=== PATIENT | female | born 1990 | race Caucasian/White ===

== ENCOUNTER 2017-05-20 10:30 | Emergency (ER) | payer SELFPAY ==
[2017-05-20 10:38] VITALS: O2SAT 98
[2017-05-20 11:03] VITALS: TEMP 98.2
[2017-05-20 11:20] LABS: RBC URINE < 1 /hpf (0-3); URINE BILIRUBIN NEGATIVE (NEGATIVE); URINE BLOOD NEGATIVE (NEGATIVE); URINE COLOR Yellow (YELLOW); URINE GLUCOSE (UA) NORMAL (Normal); URINE KETONE NEGATIVE (NEGATIVE); URINE LEUKOCYTE ESTERASE NEG Leu/uL (Negative); URINE PROTEIN NEGATIVE (NEGATIVE); URINE UROBILINOGEN NORMAL mg/dL (0.2-1.0); WBC URINE < 1 /hpf (0-5)
[2017-05-20 11:52] LABS: BASO % 0.5 % (0.0-2.0); EOS # 0.1 K/uL (0.0-0.7); HEMATOCRIT 39.4 % (34.0-47.0); LYMPH # 1.9 K/uL (1.0-4.3); LYMPH % 34.8 % (20.0-40.0); MEAN CELL VOLUME 87.8 fL (81.0-99.0); MEAN CORPUSCULAR HEMOGLOBIN 29.1 pg (27.0-31.0); MEAN CORPUSCULAR HGB CONC 33.1 g/dL (33.0-37.0); MEAN PLATELET VOLUME 9.2 fL (7.2-11.7); MONO # 0.4 K/uL (0.0-0.8); MONO % 7.1 % (0.0-10.0); NRBC % 0.1 % (0.0-2.0); RED CELL DISTRIBUTION WIDTH 14.4 % (11.5-14.5); WHITE BLOOD COUNT 5.3 K/uL (4.8-10.8)
[2017-05-20 12:01] LABS: CHLORIDE 106 mmol/L (98-107); POTASSIUM 3.7 mmol/L (3.6-5.2); SODIUM 141 mmol/L (132-148)
[2017-05-20 12:03] LABS: BILIRUBIN,TOTAL 0.8 mg/dL (0.2-1.3); CARBON DIOXIDE 20 mmol/L (22-30); GFR AFRICAN-AMERICAN > 60
[2017-05-20 12:04] LABS: ALB/GLOB RATIO 1.3 (1.0-2.1); ALKALINE PHOSPHATASE 76 U/L (38-126); ALT/SGPT 13 U/L (9-52); AST/SGOT 20 U/L (14-36); BLOOD UREA NITROGEN 10 mg/dL (7-17); CALCIUM 9.6 mg/dl (8.6-10.4); GLUCOSE,RANDOM 67 mg/dL (65-105); TOTAL PROTEIN 7.6 g/dL (6.3-8.3)
--- NOTE | 2017-05-20 12:43 | C.PDOC ---
History Of Present Illness 26-year-old female, () presents to the emergency department with complaints of lower abdominal cramping that is associated with vaginal bleeding today. Patient had a home test that was positive. She denies trauma, dysuria, vomiting, diarrhea, or any other associated symptoms. No other complaints at this time. Time Seen by Provider: 05/20/17 10:50 Chief Complaint (Nursing): Female Genitourinary History Per: Patient History/Exam Limitations: no limitations Onset/Duration Of Symptoms: Hrs Current Symptoms Are (Timing): Still Present Severity: Moderate Past Medical History Reviewed: Historical Data, Nursing Documentation, Vital Signs Vital Signs: Last Vital Signs Temp 98.2 F 05/20/17 13:39 Pulse 70 05/20/17 13:39 Resp 18 05/20/17 13:39 BP 105/70 05/20/17 13:39 Pulse Ox 98 05/20/17 18:09 Family History: States: No Known Family Hx - Social History Hx Alcohol Use: No Hx Substance Use: No - Immunization History Hx Tetanus Toxoid Vaccination: No Hx Influenza Vaccination: No Hx Pneumococcal Vaccination: No Review Of Systems Except As Marked, All Systems Reviewed And Found Negative. Constitutional: Negative for: Fever, Chills Cardiovascular: Negative for: Chest Pain, Palpitations Respiratory: Negative for: Shortness of Breath Gastrointestinal: Positive for: Abdominal Pain. Negative for: Nausea, Vomiting Genitourinary: Positive for: Vaginal Bleeding Neurological: Negative for: Weakness, Numbness, Headache, Dizziness Physical Exam - Physical Exam Appears: Non-toxic, No Acute Distress Skin: Warm, Dry, No Rash Head: Atraumatic, Normacephalic Eye(s): bilateral: Normal Inspection, PERRL, EOMI Nose: Normal Oral Mucosa: Moist Lips: Normal Appearing Throat: No Erythema, No Exudate Neck: Normal ROM, Supple Cardiovascular: Rhythm Regular, No Friction Rub, No Murmur Respiratory: Normal Breath Sounds, No Accessory Muscle Use Gastrointestinal/Abdominal: Soft, No Tenderness, No Guarding, No Rebound Back: Normal Inspection, No CVA Tenderness Extremity: Normal ROM, No Swelling Neurological/Psych: Oriented x3, Normal Speech, Normal Motor Gait: Steady ED Course And Treatment - Laboratory Results Result Diagrams: 05/20/17 11:45 05/20/17 11:45 O2 Sat by Pulse Oximetry: 98 (on RA) Pulse Ox Interpretation: Normal - CT Scan/US US TRANSVAG Other Rad Studies (CT/US): Read By Radiologist, Radiology Report Reviewed CT/US Interpretation: Accession No. : [id number]. Patient Name / ID : ASIA Jiménez / [id number]. Exam Date : 05/20/2017 11:54:25 ( Approved ). Study Comment : Sex / Age : F / 26Y. Creator : Bryce Srivastava MD. Dictator : Bryce Srivastava MD. Membership Administrator : Deep Tissue Massage Therapist : Bryce Srivastava MD. Approver2 : Report Date : 05/20/2017 12:56:23. My Comment : . Pelvic ultrasound. History: Vaginal bleeding. Comparison: None available. Technique: Real-time sonography was performed through the pelvis utilizing transabdominal and transvaginal techniques. Findings: test negative. Uterus: 7.0 x 3.9 x 5.4 centimeters. Heterogeneous echotexture. Anteverted. Endometrium measures 9 millimeters, within normal limits. Cervix measures 2.6 centimeters. No free fluid in the pelvic cul-de-sac. Right ovary: 3.4 x 3.0 x 3.3 centimeters. Normal flow. Left ovary: 3.5 x 1.5 x 3.1 centimeters. Normal flow. Impression: Unremarkable sonographic evaluation of the pelvis. Medical Decision Making Medical Decision Making: Differential Diagnosis: spontaneous , UTI, dysmenorrhea, ovarian cyst, fibroids. Plan: * Type and Screen * Beta HCG, CMP * CBC * US OB * Reassess and Disposition The pelvic/transvaginal US was negative and patient was negative for . Most likely dysmenorrhea. On re-exam, the patient reports improvement of symptoms. Abdomen is soft, non-tender and tolerating PO well. Disposition - Disposition Referrals: [facility] at [facility] [Outside] [facility] [Outside] Disposition: HOME/ ROUTINE Disposition Time: 13:24 Condition: GOOD Additional Instructions: Follow up with the medical doctor within 1-2 days. Return if worsened. Prescriptions: Naproxen [Naprosyn] 500 mg PO BID #20 tab Instructions: Dysmenorrhea (ED) Print Language: JAPANESE - Clinical Impression Clinical Impression: Dysmenorrhea - Scribe Statement The provider has reviewed the documentation as recorded by the Scribe (Marcio Weber) All medical record entries made by the Scribe were at my direction and personally dictated by me. I have reviewed the chart and agree that the record accurately reflects my personal performance of the history, physical exam, medical decision making, and the department course for this patient. I have also personally directed, reviewed, and agree with the discharge instructions and disposition.
--- NOTE | 2017-05-20 12:57 | US ---
Pelvic ultrasound History: Vaginal bleeding. Comparison: None available. Technique: Real-time sonography was performed through the pelvis utilizing transabdominal and transvaginal techniques. Findings: test negative. Uterus: 7.0 x 3.9 x 5.4 centimeters. Heterogeneous echotexture. Anteverted. Endometrium measures 9 millimeters, within normal limits. Cervix measures 2.6 centimeters. No free fluid in the pelvic cul-de-sac. Right ovary: 3.4 x 3.0 x 3.3 centimeters. Normal flow. Left ovary: 3.5 x 1.5 x 3.1 centimeters. Normal flow. Impression: Unremarkable sonographic evaluation of the pelvis.
[2017-05-20 13:40] VITALS: BP 105/70; PULSE 70; RESP 18
== END 2017-05-20 13:40 | disposition home or self-care (01) ==
LOC: C.ER 10:30
DX: N94.6 Dysmenorrhea, unspecified (principal)

== ENCOUNTER 2017-06-21 11:12 | Observation (INO) | payer SELFPAY ==
[2017-06-21 11:20] VITALS: TEMP 97.7
[2017-06-21 11:57] LABS: RBC URINE < 1 /hpf (0-3); URINE BILIRUBIN NEGATIVE (NEGATIVE); URINE BLOOD NEGATIVE (NEGATIVE); URINE COLOR Straw (YELLOW); URINE GLUCOSE (UA) NORMAL (Normal); URINE KETONE NEGATIVE (NEGATIVE); URINE LEUKOCYTE ESTERASE NEG Leu/uL (Negative); URINE PROTEIN NEGATIVE (NEGATIVE); URINE UROBILINOGEN NORMAL mg/dL (0.2-1.0); WBC URINE < 1 /hpf (0-5)
[2017-06-21] MEDS ORDERED: Iohexol 240 (50 ml) PO STA (13:09)
[2017-06-21] MEDS ORDERED: Sodium Chloride 0.9% 1,000 ML IV ONE (13:09)
[2017-06-21] MEDS ORDERED: Iohexol 240 (50 ml) ONE (13:21)
[2017-06-21] MEDS ORDERED: Sodium Chloride 0.9% 1,000 ML ONE (13:21)
[2017-06-21 13:25] LABS: BASO % 0.4 % (0.0-2.0); EOS # 0.1 K/uL (0.0-0.7); EOS % 1.3 % (0.0-4.0); HEMATOCRIT 39.7 % (34.0-47.0); LYMPH % 34.3 % (20.0-40.0); MEAN CELL VOLUME 87.7 fL (81.0-99.0); MEAN CORPUSCULAR HEMOGLOBIN 29.7 pg (27.0-31.0); MEAN CORPUSCULAR HGB CONC 33.9 g/dL (33.0-37.0); MONO # 0.4 K/uL (0.0-0.8); MONO % 7.4 % (0.0-10.0); RED CELL DISTRIBUTION WIDTH 14.5 % (11.5-14.5); WHITE BLOOD COUNT 5.7 K/uL (4.8-10.8)
[2017-06-21 13:44] LABS: CHLORIDE 101 mmol/L (98-107); SODIUM 140 mmol/L (132-148)
[2017-06-21 13:45] LABS: POTASSIUM 3.7 mmol/L (3.6-5.2)
[2017-06-21 13:47] LABS: ALB/GLOB RATIO 1.3 (1.0-2.1); ALKALINE PHOSPHATASE 87 U/L (38-126); ALT/SGPT 25 U/L (9-52); AST/SGOT 31 U/L (14-36); BILIRUBIN,TOTAL 0.8 mg/dL (0.2-1.3); BLOOD UREA NITROGEN 10 mg/dL (7-17); CALCIUM 9.4 mg/dl (8.6-10.4); CARBON DIOXIDE 23 mmol/L (22-30); GFR AFRICAN-AMERICAN > 60; GLUCOSE,RANDOM 75 mg/dL (65-105); TOTAL PROTEIN 7.5 g/dL (6.3-8.3)
[2017-06-21] MEDS ORDERED: Iodixanol 320 MG/ML 100 ML BOTTLE IV ONE (14:58)
[2017-06-21] MEDS ORDERED: Iohexol 350mg/ml 100 ML ONE (15:00)
--- NOTE | 2017-06-21 15:40 | CT ---
PROCEDURE: CT Abdomen and Pelvis with oral and IV contrast. HISTORY: R mid abd pain, r/o appy COMPARISON: None available. TECHNIQUE: Contiguous axial images of the abdomen and pelvis. Oral and IV contrast was administered. Coronal and Sagittal reformats generated and reviewed. Contrast dose: 100 mL Omnipaque 350 Radiation dose: Total exam DLP = 275.10 MGy-cm. This CT exam was performed using one or more of the following dose reduction techniques: Automated exposure control, adjustment of the mA and/or kV according to patient size, and/or use of iterative reconstruction technique. FINDINGS: LOWER THORAX: No visible consolidation, pleural effusion, or pneumothorax. LIVER: Hypoattenuation of the liver compatible with hepatic steatosis. GALLBLADDER AND BILE DUCTS: Unremarkable. PANCREAS: Unremarkable. SPLEEN: Unremarkable. ADRENALS: Unremarkable. KIDNEYS AND URETERS: The kidneys enhance symmetrically. No hydronephrosis or obstructing renal calculus. BLADDER: The urinary bladder appears unremarkable. REPRODUCTIVE: Uterus is present. 2.3 cm probable right ovarian cyst. 2.1 cm left probable ovarian cyst. APPENDIX: The appendix appears within normal limits of caliber. No secondary signs of acute appendicitis. BOWEL: The stomach is nondistended. The bowel loops appear within normal limits of caliber without evidence of intestinal obstruction. Moderate diffuse constipation. PERITONEUM: No significant free fluid. No definite free air. LYMPH NODES: No bulky lymphadenopathy identified. VASCULATURE: No aortic aneurysm. BONES: No acute osseous abnormality is detected. OTHER FINDINGS: None. IMPRESSION: 2.3 cm probable right ovarian cyst. 2.1 cm left probable ovarian cyst. Recommend further evaluation with pelvic ultrasound. Moderate diffuse constipation. The appendix appears within normal limits of caliber. No secondary signs of acute appendicitis. Hepatic steatosis.
[2017-06-21 15:49] VITALS: RESP 16
[2017-06-21 16:09] VITALS: BP 101/64; PULSE 73; O2SAT 99
--- NOTE | 2017-06-21 16:13 | C.PDOC ---
History Of Present Illness 26 y/o female presents to the ED with complaints of right-mid abdominal pain x2 days with associated nausea, vomiting (5 episodes) and diarrhea (3 episodes). Pt states pain is constant and sharp in nature, she has never had similar pain in the past. She denies urinary symptoms, fever, chills, radiation of pain, vaginal bleeding/discharge or any other complaints. Denies recent travel. No history of abdominal surgeries or gallbladder disease. Time Seen by Provider: 06/21/17 11:40 Chief Complaint (Nursing): Female Genitourinary History Per: Patient History/Exam Limitations: no limitations Onset/Duration Of Symptoms: Days Current Symptoms Are (Timing): Still Present Severity: Moderate Radiation Of Pain To:: None Quality Of Discomfort: Sharp Associated Symptoms: Nausea, Vomiting, Diarrhea. denies: Fever, Chills, Back Pain, Urinary Symptoms Exacerbating Factors: None Alleviating Factors: None Recent travel outside of the [place]: No Abnormal Vaginal Bleeding: No Past Medical History Reviewed: Historical Data, Nursing Documentation, Vital Signs Vital Signs: Last Vital Signs Temp 97.7 F 06/21/17 11:20 Pulse 73 06/21/17 16:08 Resp 16 06/21/17 16:08 BP 101/64 06/21/17 16:08 Pulse Ox 99 06/21/17 16:26 Family History: States: Unknown Family Hx - Social History Hx Alcohol Use: No Hx Substance Use: No - Immunization History Hx Tetanus Toxoid Vaccination: No Hx Influenza Vaccination: No Hx Pneumococcal Vaccination: No Review Of Systems Except As Marked, All Systems Reviewed And Found Negative. Constitutional: Negative for: Fever, Chills Cardiovascular: Negative for: Chest Pain Respiratory: Negative for: Shortness of Breath Gastrointestinal: Positive for: Nausea, Vomiting, Abdominal Pain, Diarrhea Genitourinary: Negative for: Dysuria, Hematuria, Vaginal Discharge, Vaginal Bleeding Musculoskeletal: Negative for: Back Pain Physical Exam - Physical Exam Appears: Well, Non-toxic, In Acute Distress (mild painful distress) Skin: Warm, Dry, No Rash Head: Atraumatic, Normacephalic Eye(s): bilateral: Normal Inspection, PERRL, EOMI Oral Mucosa: Moist Neck: Normal, Normal ROM, Trachea Midline, No Midline Cervical Tenderness Chest: Symmetrical, No Tenderness Cardiovascular: Rhythm Regular, No Murmur Respiratory: Normal Breath Sounds, No Decreased Breath Sounds, No Accessory Muscle Use, No Rales, No Rhonchi, No Wheezing Gastrointestinal/Abdominal: Soft, Tenderness (R sided mid abdominal tenderness, (-) Patel's, (-) McBurney's), No Organomegaly, No Mass, No Distention, No Guarding, No Rebound, No Hernia Back: Normal Inspection, No CVA Tenderness, No Vertebral Tenderness Extremity: Normal ROM, No Tenderness, No Pedal Edema, No Calf Tenderness, Capillary Refill (normal), No Deformity, No Swelling Pulses: Left Dorsalis Pedis: Normal, Right Dorsalis Pedis: Normal Neurological/Psych: Oriented x3, Normal Speech, Normal Cognition, Normal Motor, Normal Sensation ED Course And Treatment - Laboratory Results Result Diagrams: 06/21/17 13:20 06/21/17 13:20 Lab Interpretation: Normal Urine POC: Negative O2 Sat by Pulse Oximetry: 99 (room air) Pulse Ox Interpretation: Normal - CT Scan/US CT abdomen Other Rad Studies (CT/US): Read By Radiologist, Radiology Report Reviewed CT/US Interpretation: IMPRESSION: 2.3 cm probable right ovarian cyst. 2.1 cm left probable ovarian cyst. Recommend further evaluation with pelvic ultrasound. Moderate diffuse constipation. The appendix appears within normal limits of caliber. No secondary signs of acute appendicitis. Hepatic steatosis. Medical Decision Making Medical Decision Makin26 y/o female presents to the ED with complaints of right-mid abdominal pain x2 days with associated nausea, vomiting (5 episodes) and diarrhea (3 episodes). Differential diagnosis : to r/o appendicitis, consider colitis, cholecystitis Plan: - CT abdomen / pelvis with po and IV contrast - labs - IV fluids - UA - pepcid, zofran, toradol - uhcg - Pt placed in ED observation ED OBSERVATION Date of observation admission: 06/21/17 Time of observation admission: 12:30 - Observation admission statement Patient is being placed in observation because:: abdominal pain to r/o appendicitis - Goals of Observation Goals of observation are:: to monitor the pt's signs and symptoms - Progress Note Progress Note: 06/21/17 13:02 UA results reviewed and are wnl, Uchg (-). On re-evaluation, pt is continuing to c/o pain in the R mid abdomen. On exam, pt is laying in bed comfortably. Abdomen remains soft with (+) moderate R mid abdominal tenderness, (-) guarding , (-) rebound, (-) Patel's sign, (-) McBurney's. Considering the location of the pain, labs ordered and CT to evaluate both GB and appendix. Pt agrees with current plan to obtain labs and CT. 06/21/17 15:10 Pt tolerating po contrast well, she is in no distress, reports improvement of abdominal pain and denies any N/V/D or urinary symptoms at this time. Pt sent to CT. 06/21/17 16:10 CT results reviewed and show b/l ovarian cyst, moderate constipation, however the appendix is normal. On re-evaluation, pt reports significant improvement of pain, pt is laying in bed in no acute distress. Repeat exam : Neck: Supple ENT: no acute findings Lungs: CTA B/L, BS equal B/L. CVS: (+)S1S2, reg. Abd: benign, (-) guarding, (-) rebound. Back: (-) CVA Tenderness. Diagnostic results d/w the pt in great detail. Advised to f/u with the clinic for re-evaluation and follow up. Take medications as prescribed and to return to the ER at any time for any new or worsening symptoms. Pt understand and agrees with instructions, diagnosis and further plan of care. Disposition - Disposition Disposition: HOME/ ROUTINE Disposition Time: 12:30 (Pt placed in Ed observation) Condition: IMPROVED - Clinical Impression Clinical Impression: Abdominal pain - PA / INSTRUMENT CALIBRATOR / Resident Statement MD/DO has reviewed & agrees with the documentation as recorded. - Scribe Statement The provider has reviewed the documentation as recorded by the Eileenibparvin Latif All medical record entries made by the Carito were at my direction and personally dictated by me. I have reviewed the chart and agree that the record accurately reflects my personal performance of the history, physical exam, medical decision making, and the department course for this patient. I have also personally directed, reviewed, and agree with the discharge instructions and disposition.
== END 2017-06-21 16:34 | disposition home or self-care (01) ==
LOC: C.ER 11:12 → C.9OBSV 12:30
PROVIDERS: ADMIT Emergency Medicine; ATTEND Emergency Medicine
DX: R11.2 Nausea with vomiting, unspecified (principal); R10.9 Unspecified abdominal pain
CPT/HCPCS: 36415; 74177; 80053; 81001; 83690; 84703; 85025; 87086; 96361; 96374; 96375; 99285; G0378; J1885; J2405; J7040; Q9966; Q9967

== ENCOUNTER 2017-07-13 14:14 | Emergency (ER) | payer SELFPAY ==
[2017-07-13 14:19] VITALS: O2SAT 100
--- NOTE | 2017-07-13 14:39 | C.PDOC ---
History Of Present Illness 26 y/o female presents to ED who reports that she went to the clinic today to get control treatment but was advised that she was . Patient c/o abdominal cramping and some vaginal bleeding consistent with normal menses that began yesterday. Patient states she has had 2 prior pregnancies and 2 spontaneous miscarriages. As per prior records, patient with history of miscarriage in August, at appx. 13 weeks; also evaluated in the ER in January, and was at that time. Patient states today that she does not feel . Otherwise, denies fever, chills, nausea, vomiting, diarrhea, urinary symptoms, or other complaints. Time Seen by Provider: 07/13/17 14:29 Chief Complaint (Nursing): Female Genitourinary History Per: Patient History/Exam Limitations: no limitations Current Symptoms Are (Timing): Still Present Reports Recently: Treated By A Physician Recent travel outside of the [place]: No Past Medical History Reviewed: Historical Data, Nursing Documentation, Vital Signs Vital Signs: Last Vital Signs Temp 98.3 F 07/13/17 14:18 Pulse 70 07/13/17 14:18 Resp 16 07/13/17 14:18 BP 110/74 07/13/17 14:18 Pulse Ox 100 07/13/17 17:16 - Medical History PMH: No Chronic Diseases Family History: States: Unknown Family Hx - Social History Hx Alcohol Use: No Hx Substance Use: No - Immunization History Hx Tetanus Toxoid Vaccination: No Hx Influenza Vaccination: No Hx Pneumococcal Vaccination: No Review Of Systems Except As Marked, All Systems Reviewed And Found Negative. Constitutional: Negative for: Fever Cardiovascular: Negative for: Chest Pain Gastrointestinal: Positive for: Abdominal Pain. Negative for: Nausea, Vomiting Genitourinary: Positive for: Vaginal Bleeding Skin: Negative for: Rash Neurological: Negative for: Headache, Dizziness Physical Exam - Physical Exam Appears: Non-toxic, No Acute Distress Skin: Normal Color, Warm, Dry Head: Atraumatic, Normacephalic Oral Mucosa: Moist Chest: Symmetrical Cardiovascular: Rhythm Regular Respiratory: Normal Breath Sounds, No Rales, No Rhonchi, No Wheezing Gastrointestinal/Abdominal: Soft, No Tenderness, No Guarding, No Rebound Back: Normal Inspection Pelvic: Vaginal Bleeding, No Cervical Motion Tenderness, No Cervix Open, No Adnexal Tenderness, No Mass, No Enlarged Uterus Extremity: Normal ROM, Capillary Refill (< 2 sec.) Neurological/Psych: Oriented x3, Normal Speech, Normal Cognition ED Course And Treatment - Laboratory Results Result Diagrams: 07/13/17 14:49 07/13/17 14:49 Lab Interpretation: Abnormal Interpretation Of Abnormal: BHCG 436, Blood type O+ documented on prior visit. O2 Sat by Pulse Oximetry: 100 (RA) Pulse Ox Interpretation: Normal - CT Scan/US Pelvic ultrasound Other Rad Studies (CT/US): Read By Radiologist, Radiology Report Reviewed CT/US Interpretation: Accession No. : [id number]. Patient Name / ID : ASIA Jiménez / [id number]. Exam Date : 07/13/2017 16:07:02 ( Approved ). Study Comment : Sex / Age : F / 26Y. Creator : Cecilia Gonzales MD. Dictator : Drag Down : Public Aid Eligibility Assistant : Cecilia Gonzales MD. Approver2 : Report Date : 07/13/2017 16:50:05. My Comment : . Indication: with vaginal bleeding. Comparison: Pelvic ultrasound performed 05/20/17. Technique: Real-time transabdominal pelvic ultrasound was performed. In addition a transvaginal pelvic ultrasound was necessary to better depict pelvic anatomy. Findings: The uterus measures approximately 8.4 x 3.5 x 4.8 cm. Anteverted. Cervix length measures approximately 3.6 cm. No evidence of intrauterine gestational sac. Endometrial thickness measures approximately 1 cm in diameter. The right ovary measures 2.7 x 1.6 x 2.9 cm. The left ovary measures 3.0 x 2.2 x 2.0 cm. Blood flow was demonstrated to both ovaries. Impression: No evidence of intrauterine gestational sac. If indeed the patient is based on serum beta HCG values, the sonographic findings represent either: Very early IUP; embryonic demise; ectopic gestation. Follow-up with serial quantitative serum beta HCG measurements and post OBGYN follow-up as clinically indicated, since ectopic gestation cannot be excluded based only on sonographic findings. Progress Note: Labs, bloodwork ordered. Reevaluation Time: 17:10 Reassessment Condition: Unchanged Disposition - Disposition Referrals: [facility] [Outside] Disposition: HOME/ ROUTINE Disposition Time: 17:15 Condition: STABLE Instructions: Threatened Miscarriage (ED) Forms: [employer] (French) Print Language: ITALIAN - Clinical Impression Clinical Impression: Threatened - Scribe Statement The provider has reviewed the documentation as recorded by the Scribe SM All medical record entries made by the Scribe were at my direction and personally dictated by me. I have reviewed the chart and agree that the record accurately reflects my personal performance of the history, physical exam, medical decision making, and the department course for this patient. I have also personally directed, reviewed, and agree with the discharge instructions and disposition.
[2017-07-13 14:53] LABS: BASO % 0.4 % (0.0-2.0); EOS # 0.1 K/uL (0.0-0.7); EOS % 1.4 % (0.0-4.0); HEMATOCRIT 40.3 % (34.0-47.0); LYMPH % 31.8 % (20.0-40.0); MEAN CELL VOLUME 89.2 fL (81.0-99.0); MEAN CORPUSCULAR HGB CONC 32.5 g/dL (33.0-37.0); MEAN PLATELET VOLUME 8.7 fL (7.2-11.7); MONO # 0.5 K/uL (0.0-0.8); MONO % 7.6 % (0.0-10.0); NRBC % 0.1 % (0.0-2.0); WHITE BLOOD COUNT 6.2 K/uL (4.8-10.8)
[2017-07-13 15:01] LABS: CHLORIDE 104 mmol/L (98-107)
[2017-07-13 15:02] LABS: POTASSIUM 3.9 mmol/L (3.6-5.2); SODIUM 140 mmol/L (132-148)
[2017-07-13 15:04] LABS: AST/SGOT 22 U/L (14-36); BILIRUBIN,TOTAL 0.6 mg/dL (0.2-1.3); CARBON DIOXIDE 21 mmol/L (22-30); GFR AFRICAN-AMERICAN > 60
[2017-07-13 15:05] LABS: ALB/GLOB RATIO 1.3 (1.0-2.1); ALKALINE PHOSPHATASE 89 U/L (38-126); ALT/SGPT 25 U/L (9-52); BLOOD UREA NITROGEN 8 mg/dL (7-17); CALCIUM 9.3 mg/dl (8.6-10.4); GLUCOSE,RANDOM 89 mg/dL (65-105); TOTAL PROTEIN 7.5 g/dL (6.3-8.3)
--- NOTE | 2017-07-13 17:24 | US ---
Indication: with vaginal bleeding Comparison: Pelvic ultrasound performed 05/20/17 Technique: Real-time transabdominal pelvic ultrasound was performed. In addition a transvaginal pelvic ultrasound was necessary to better depict pelvic anatomy. Findings: The uterus measures approximately 8.4 x 3.5 x 4.8 cm. Anteverted. Cervix length measures approximately 3.6 cm. No evidence of intrauterine gestational sac. Endometrial thickness measures approximately 1 cm in diameter. The right ovary measures 2.7 x 1.6 x 2.9 cm. The left ovary measures 3.0 x 2.2 x 2.0 cm. Blood flow was demonstrated to both ovaries. Impression: No evidence of intrauterine gestational sac. If indeed the patient is based on serum beta HCG values, the sonographic findings represent either: Very early IUP; embryonic demise; ectopic gestation. Follow-up with serial quantitative serum beta HCG measurements and post OBGYN follow-up as clinically indicated, since ectopic gestation cannot be excluded based only on sonographic findings.
[2017-07-13 17:51] VITALS: BP 122/75; PULSE 83; RESP 20; TEMP 97.7
== END 2017-07-13 17:54 | disposition home or self-care (01) ==
LOC: C.ER 14:14
DX: O20.0 Threatened abortion (principal); Z3A.00 Weeks of gestation of pregnancy not specified

== ENCOUNTER 2017-07-19 18:25 | Emergency (ER) | payer SELFPAY ==
[2017-07-19 18:34] VITALS: RESP 18
--- NOTE | 2017-07-19 19:50 | C.PDOC ---
History Of Present Illness 26 year old female presents to the ED for scheduled beta quant after being seen in the ED on 07/13/2017. Patient notes suprapubic pain and slight spotting for three days " but vaginal bleeding significantly improved". She denies fever, chills, headache, dizziness, CP, SOB, dyspnea, abd. pain, N/V, dysuria, hematuria, or any other active complaints. Ambulate to ED for evaluation, not in any apparent distress. Time Seen by Provider: 07/19/17 19:12 Chief Complaint (Nursing): Female Genitourinary History Per: Patient History/Exam Limitations: no limitations Onset/Duration Of Symptoms: Days (3 days ) Current Symptoms Are (Timing): Still Present Quality Of Discomfort: "Pain" Associated Symptoms: denies: Fever, Chills, Nausea, Vomiting, Diarrhea Recent travel outside of the [place]: No Additional History Per: Prior Records Abnormal Vaginal Bleeding: Yes Past Medical History Reviewed: Historical Data, Nursing Documentation, Vital Signs Vital Signs: Last Vital Signs Temp 99.4 F 07/19/17 18:33 Pulse 75 07/19/17 18:33 Resp 18 07/19/17 18:33 BP 108/72 07/19/17 18:33 Pulse Ox 97 07/19/17 20:24 Family History: States: Unknown Family Hx - Social History Hx Alcohol Use: No Hx Substance Use: No - Immunization History Hx Tetanus Toxoid Vaccination: No Hx Influenza Vaccination: No Hx Pneumococcal Vaccination: No Review Of Systems Constitutional: Negative for: Fever, Chills Cardiovascular: Negative for: Chest Pain Respiratory: Negative for: Shortness of Breath Gastrointestinal: Positive for: Abdominal Pain. Negative for: Nausea, Vomiting , Diarrhea Genitourinary: Positive for: Vaginal Bleeding. Negative for: Dysuria, Hematuria Musculoskeletal: Negative for: Back Pain Physical Exam - Physical Exam Appears: Non-toxic, No Acute Distress Skin: Warm, Dry, No Rash Head: Normacephalic Eye(s): bilateral: PERRL Nose: No Flaring Oral Mucosa: Moist, No Drooling Throat: No Erythema, No Drooling Neck: Supple Chest: No Deformity Cardiovascular: Rhythm Regular Respiratory: No Decreased Breath Sounds, No Accessory Muscle Use, No Rhonchi, No Stridor, No Wheezing Gastrointestinal/Abdominal: Soft, No Tenderness, No Distention, No Guarding, No Rebound Back: No CVA Tenderness Extremity: No Tenderness, No Pedal Edema Neurological/Psych: Oriented x3, Normal Speech, Normal Cognition ED Course And Treatment - Laboratory Results Result Diagrams: 07/19/17 19:46 Lab Interpretation: Normal Urine POC: Negative O2 Sat by Pulse Oximetry: 97 (room air ) Pulse Ox Interpretation: Normal Progress Note: On re-eval, pt is afebrile, hemodynamicaly stable. Non-toxic. AMbulatory in ED with stable gait. Neck: Supple. Abd: benign, (-) guardng, (- ) rebound. Back: (-) CVA tenderness. Neurological intact. CBC, UA results review and appears normal, preg test-negative. Beta quant was 436 and today 14. US results (-) for IUP. Pt has clinical findings c/w complete . Pt advised and ref. to F/u with EMERGENCY VETERINARY ASSISTANT in 2-3 days for re-eavl. return to ED if any worsening or new changes. Disposition Counseled Patient/Family Regarding: Diagnosis, Need For Followup - Disposition [facility] Disposition: HOME/ ROUTINE Disposition Time: 20:20 Condition: STABLE Instructions: Spontaneous Miscarriage (ED) Forms: [employer] (Bulgarian) Print Language: GERMAN - Clinical Impression Clinical Impression: Complete - Scribe Statement The provider has reviewed the documentation as recorded by the Scribparvin Alexandre All medical record entries made by the Scribe were at my direction and personally dictated by me. I have reviewed the chart and agree that the record accurately reflects my personal performance of the history, physical exam, medical decision making, and the department course for this patient. I have also personally directed, reviewed, and agree with the discharge instructions and disposition.
[2017-07-19 19:55] LABS: BASO % 0.4 % (0.0-2.0); EOS # 0.1 K/uL (0.0-0.7); EOS % 1.3 % (0.0-4.0); HEMATOCRIT 38.9 % (34.0-47.0); LYMPH # 2.9 K/uL (1.0-4.3); LYMPH % 37.9 % (20.0-40.0); MEAN CELL VOLUME 89.9 fL (81.0-99.0); MEAN CORPUSCULAR HEMOGLOBIN 30.2 pg (27.0-31.0); MEAN CORPUSCULAR HGB CONC 33.6 g/dL (33.0-37.0); MEAN PLATELET VOLUME 8.5 fL (7.2-11.7); MONO # 0.6 K/uL (0.0-0.8); MONO % 7.4 % (0.0-10.0); NRBC % 0.1 % (0.0-2.0); RED CELL DISTRIBUTION WIDTH 13.7 % (11.5-14.5); WHITE BLOOD COUNT 7.6 K/uL (4.8-10.8)
[2017-07-19 20:12] LABS: URINE BILIRUBIN NEGATIVE (NEGATIVE); URINE BLOOD NEGATIVE (NEGATIVE); URINE COLOR Colorless (YELLOW); URINE GLUCOSE (UA) NORMAL (Normal); URINE KETONE NEGATIVE (NEGATIVE); URINE LEUKOCYTE ESTERASE NEG Leu/uL (Negative); URINE PROTEIN NEGATIVE (NEGATIVE); URINE UROBILINOGEN NORMAL mg/dL (0.2-1.0)
[2017-07-19 21:27] VITALS: BP 109/70; PULSE 78; TEMP 98.8; O2SAT 100
--- NOTE | 2017-07-20 10:30 | US ---
Indication: Vaginal bleeding Comparison: Pelvis/transvaginal ultrasound performed 07/13/17 Technique: Real-time transabdominal pelvic ultrasound was performed. In addition a transvaginal pelvic ultrasound was necessary to better depict pelvic anatomy. Findings: The uterus measures approximately 7.3 x 4.2 x 5.1 cm. Anteverted. Cervix length measures approximately 2.5 cm. Endometrial thickness measures approximately 0.6 cm. No evidence of intrauterine gestational sac. The right ovary measures 2.9 x 2.0 x 2.6 cm. The left ovary measures 2.8 x 2.1 x 2.4 cm. Blood flow was demonstrated to both ovaries. Impression: No evidence of intrauterine gestational sac. Correlate clinically. Preliminary impression was provided by virtual radiologic.
== END 2017-07-19 21:27 | disposition home or self-care (01) ==
LOC: C.ER 18:25
DX: O03.9 Complete or unspecified spontaneous abortion without complication (principal)

== ENCOUNTER 2017-08-18 13:08 | Emergency (ER) | payer OTHER ==
[2017-08-18 13:17] VITALS: PULSE 79
--- NOTE | 2017-08-18 14:03 | C.PDOC ---
History Of Present Illness 26 year old female presents to the ED with complaints of pelvic pain, lower back pain and urinary frequency. Patient was seen in the ED in June 2017 for a miscarriage and she has followed up with a software quality automation engineer who told her hormones are still regulating. Has not gotten a period since. She denies any vaginal bleeding/discharge, fever, hematuria, nausea, or vomiting. Time Seen by Provider: 08/18/17 13:40 Chief Complaint (Nursing): Female Genitourinary History Per: Patient, Credit Resolution Representative History/Exam Limitations: no limitations Onset/Duration Of Symptoms: Hrs (2 days ) Current Symptoms Are (Timing): Still Present Location Of Pain/Discomfort: Suprapubic Radiation Of Pain To:: None Quality Of Discomfort: "Pain" Associated Symptoms: Back Pain, Urinary Symptoms. denies: Fever, Chills, Nausea , Vomiting Exacerbating Factors: None Recent travel outside of the [place]: No Additional History Per: Prior Records Abnormal Vaginal Bleeding: No Past Medical History Reviewed: Historical Data, Nursing Documentation, Vital Signs Vital Signs: Last Vital Signs Temp 97.4 F L 08/18/17 16:21 Pulse 79 08/18/17 16:21 Resp 18 08/18/17 16:21 BP 112/72 08/18/17 16:21 Pulse Ox 96 08/18/17 16:21 Family History: States: Unknown Family Hx - Social History Hx Alcohol Use: No Hx Substance Use: No - Immunization History Hx Tetanus Toxoid Vaccination: No Hx Influenza Vaccination: No Hx Pneumococcal Vaccination: No Review Of Systems Constitutional: Negative for: Fever, Chills Cardiovascular: Negative for: Chest Pain, Palpitations Respiratory: Negative for: Cough, Shortness of Breath Gastrointestinal: Positive for: Abdominal Pain. Negative for: Nausea, Vomiting , Diarrhea Genitourinary: Positive for: Dysuria, Vaginal Discharge. Negative for: Hematuria, Vaginal Bleeding Musculoskeletal: Positive for: Back Pain Physical Exam - Physical Exam Appears: Non-toxic, No Acute Distress Skin: Warm, Dry Head: Atraumatic, Normacephalic Eye(s): bilateral: Normal Inspection, EOMI Oral Mucosa: Moist Neck: Normal ROM, Supple Chest: Symmetrical, No Deformity Cardiovascular: Rhythm Regular Respiratory: Normal Breath Sounds, No Rales, No Rhonchi, No Wheezing Gastrointestinal/Abdominal: Soft, Tenderness (suprapubic tenderness ), No Distention, No Guarding, No Rebound Back: No CVA Tenderness, Paraspinal Tenderness (lower paralumbar tenderness ) Extremity: Normal ROM, No Tenderness Neurological/Psych: Oriented x3, Normal Speech ED Course And Treatment - Laboratory Results Result Diagrams: 08/18/17 14:39 08/18/17 14:39 O2 Sat by Pulse Oximetry: 99 (room air ) Progress Note: Labs were ordered. Pt was given copies for labs and US. Instructed strict f/u with OB in 3-4 days for re-evaluation. Instructed to return to ER if symptoms persist or worsen. Disposition - Disposition Referrals: [facility] at [facility] [Outside] Disposition: HOME/ ROUTINE Disposition Time: 15:42 Condition: GOOD Additional Instructions: Bk un seguimiento con ya mdico de cabecera en 1-2 roque. Regresar a Urgencias si los sntomas persisten o empeoran. Prescriptions: Multivit/Folic Acid/I [ Plus] 1 tab PO DAILY #30 tab Instructions: (ED) Forms: Work/School/Gym Excuse, [facility] (Syrian) Print Language: DANISH - Clinical Impression Clinical Impression: - PA / PHYSICS FACULTY MEMBER / Resident Statement MD/DO has reviewed & agrees with the documentation as recorded. - Scribe Statement The provider has reviewed the documentation as recorded by the Scribe Deloris Alexandre All medical record entries made by the Scribe were at my direction and personally dictated by me. I have reviewed the chart and agree that the record accurately reflects my personal performance of the history, physical exam, medical decision making, and the department course for this patient. I have also personally directed, reviewed, and agree with the discharge instructions and disposition.
[2017-08-18 14:20] LABS: RBC URINE < 1 /hpf (0-3); URINE BILIRUBIN NEGATIVE (NEGATIVE); URINE BLOOD NEGATIVE (NEGATIVE); URINE COLOR Yellow (YELLOW); URINE GLUCOSE (UA) NORMAL (Normal); URINE KETONE NEGATIVE (NEGATIVE); URINE LEUKOCYTE ESTERASE NEG Leu/uL (Negative); URINE PROTEIN NEGATIVE (NEGATIVE); URINE UROBILINOGEN NORMAL mg/dL (0.2-1.0); WBC URINE < 1 /hpf (0-5)
[2017-08-18 14:43] LABS: BASO % 0.3 % (0.0-2.0); EOS # 0.1 K/uL (0.0-0.7); EOS % 0.7 % (0.0-4.0); HEMATOCRIT 38.7 % (34.0-47.0); LYMPH # 1.5 K/uL (1.0-4.3); LYMPH % 16.7 % (20.0-40.0); MEAN CELL VOLUME 90.4 fL (81.0-99.0); MEAN CORPUSCULAR HGB CONC 34.3 g/dL (33.0-37.0); MEAN PLATELET VOLUME 8.4 fL (7.2-11.7); MONO # 0.6 K/uL (0.0-0.8); MONO % 6.2 % (0.0-10.0); RED CELL DISTRIBUTION WIDTH 13.6 % (11.5-14.5); WHITE BLOOD COUNT 9.1 K/uL (4.8-10.8)
[2017-08-18 14:50] LABS: CHLORIDE 103 mmol/L (98-107)
[2017-08-18 14:51] LABS: POTASSIUM 3.8 mmol/L (3.6-5.2); SODIUM 138 mmol/L (132-148)
[2017-08-18 14:53] LABS: ALB/GLOB RATIO 1.3 (1.0-2.1); AST/SGOT 20 U/L (14-36); BILIRUBIN,TOTAL 0.5 mg/dL (0.2-1.3); CARBON DIOXIDE 22 mmol/L (22-30); GFR AFRICAN-AMERICAN > 60; TOTAL PROTEIN 7.2 g/dL (6.3-8.3)
[2017-08-18 14:54] LABS: ALKALINE PHOSPHATASE 71 U/L (38-126); ALT/SGPT 29 U/L (9-52); BLOOD UREA NITROGEN 12 mg/dL (7-17); CALCIUM 9.4 mg/dl (8.6-10.4); GLUCOSE,RANDOM 82 mg/dL (65-105)
--- NOTE | 2017-08-18 15:38 | US ---
Indication: Pain Comparison: Pelvic ultrasound performed 07/19/17 Technique: Real-time transabdominal pelvic ultrasound was performed. In addition a transvaginal pelvic ultrasound was necessary to better depict pelvic anatomy. Findings: The uterus measures approximately 8.2 x 4.8 x 6.1 cm. Anteverted. Small cystic structure measuring approximately 2 mm, possibly gestational sac, too small for gestational age calculation. No evidence of pole at this time. Fluid is noted within the endometrial cavity. The right ovary measures 3.5 x 2.3 x 3.2 cm. 1.7 x 1.6 x 1.5 cm probable corpus luteal cyst, right ovary. The left ovary measures 2.6 x 1.6 x 2.7 cm. Blood flow was demonstrated to both ovaries. Impression: 2 mm cystic structure within the endometrial cavity possibly gestational sac which is too small gestational age calculation. No evidence of pole at this time. Correlate clinically including quantitative beta HCG and short-term follow-up ultrasound as indicated. Fluid is noted within the endometrial cavity. Probable right corpus luteal cyst.
[2017-08-18 16:22] VITALS: BP 112/72; RESP 18; TEMP 97.4
[2017-08-19 23:07] VITALS: O2SAT 99
== END 2017-08-18 16:23 | disposition home or self-care (01) ==
LOC: C.ER 13:08
DX: O26.891 Other specified pregnancy related conditions, first trimester (principal); Z3A.00 Weeks of gestation of pregnancy not specified

== ENCOUNTER 2017-08-24 12:49 | Emergency (ER) | payer SELFPAY ==
[2017-08-24 13:06] VITALS: BP 105/61; PULSE 70; RESP 20; TEMP 97.9; O2SAT 96
== END 2017-08-24 13:03 | disposition left against medical advice (07) ==
LOC: C.ER 12:49
DX: O20.9 Hemorrhage in early pregnancy, unspecified (principal); Z3A.01 Less than 8 weeks gestation of pregnancy

== ENCOUNTER 2017-12-12 11:57 | Emergency (ER) | payer SELFPAY ==
[2017-12-12] MEDS ORDERED: Iohexol 240 (50 ml) PO STA (13:11)
[2017-12-12] MEDS ORDERED: Sodium Chloride 0.9% 1,000 ML IV STA (13:11)
--- NOTE | 2017-12-12 13:30 | C.PDOC ---
History Of Present Illness 27 year old female presents to ED for evaluation of RLQ abdominal pain radiating to her back for the past week. Otherwise, denies n/v/d, constipation, dysuria, hematuria, frequency, vaginal discharge, fever, or chills. Time Seen by Provider: 12/12/17 12:37 Chief Complaint (Nursing): Abdominal Pain History Per: Patient, Industrial Technician (Lisa [id number]) History/Exam Limitations: no limitations, language barrier (director social welfare used) Onset/Duration Of Symptoms: Days Current Symptoms Are (Timing): Still Present Location Of Pain/Discomfort: RLQ Radiation Of Pain To:: Back Quality Of Discomfort: "Pain" Associated Symptoms: denies: Loss Of Appetite, Back Pain, Chest Pain, Constipation, Urinary Symptoms Exacerbating Factors: None Alleviating Factors: None Recent travel outside of the [place]: No Additional History Per: Patient Abnormal Vaginal Bleeding: No Past Medical History Reviewed: Historical Data, Nursing Documentation, Vital Signs Vital Signs: Last Vital Signs Temp 98.5 F 12/12/17 14:30 Pulse 60 12/12/17 14:30 Resp 18 12/12/17 14:30 BP 110/76 12/12/17 14:30 Pulse Ox 96 12/12/17 18:00 Family History: States: Unknown Family Hx - Social History Hx Alcohol Use: No Hx Substance Use: No - Immunization History Hx Tetanus Toxoid Vaccination: No Hx Influenza Vaccination: No Hx Pneumococcal Vaccination: No Review Of Systems Except As Marked, All Systems Reviewed And Found Negative. Constitutional: Negative for: Fever, Chills Cardiovascular: Negative for: Chest Pain, Palpitations Respiratory: Negative for: Cough, Shortness of Breath Gastrointestinal: Positive for: Abdominal Pain. Negative for: Nausea, Vomiting , Diarrhea, Constipation Genitourinary: Negative for: Dysuria, Frequency, Hematuria, Vaginal Discharge Musculoskeletal: Negative for: Back Pain Neurological: Negative for: Headache, Dizziness Physical Exam - Physical Exam Appears: Non-toxic, No Acute Distress Skin: Normal Color, Warm, Dry Head: Atraumatic, Normacephalic Eye(s): bilateral: Normal Inspection Oral Mucosa: Moist Neck: Normal ROM, Supple Cardiovascular: Rhythm Regular, No Murmur Respiratory: Normal Breath Sounds, No Rales, No Rhonchi, No Wheezing Gastrointestinal/Abdominal: Soft, Tenderness (RLQ), No Guarding, No Rebound Back: No CVA Tenderness Extremity: Normal ROM, No Deformity Neurological/Psych: Oriented x3, Normal Speech ED Course And Treatment - Laboratory Results Result Diagrams: 12/12/17 13:50 12/12/17 13:50 O2 Sat by Pulse Oximetry: 96 (RA) Pulse Ox Interpretation: Normal - CT Scan/US Abd & Pelvis CT Other Rad Studies (CT/US): Read By Radiologist, Radiology Report Reviewed CT/US Interpretation: PROCEDURE: CT Abdomen and Pelvis with oral and IV contrast. HISTORY: RLQ abd pain. COMPARISON: CT abdomen and pelvis with contrast performed 06/21/17. TECHNIQUE: Contiguous axial images of the abdomen and pelvis. Oral and IV contrast was administered. Coronal and Sagittal reformats generated and reviewed. Contrast dose: 100 mL Visipaque IV. Radiation dose: Total exam DLP = 316.26 mGy-cm. This CT exam was performed using one or more of the following dose reduction techniques: Automated exposure control, adjustment of the mA and/or kV according to patient size, and/ or use of iterative reconstruction technique. FINDINGS: LOWER THORAX: No visible consolidation, pleural effusion, or pneumothorax. LIVER: Unremarkable. GALLBLADDER AND BILE DUCTS: Unremarkable. PANCREAS: Unremarkable. SPLEEN: Unremarkable. ADRENALS: Unremarkable. KIDNEYS AND URETERS: The kidneys enhance symmetrically. No hydronephrosis or obstructing renal calculus. BLADDER: The urinary bladder appears unremarkable. REPRODUCTIVE: Uterus is present. APPENDIX: The appendix appears within normal limits of caliber. No secondary signs of acute appendicitis. BOWEL: The stomach is nondistended. The bowel loops appear within normal limits of caliber without evidence of intestinal obstruction. Moderate diffuse constipation. PERITONEUM: No significant free fluid. No definite free air. LYMPH NODES: No bulky lymphadenopathy identified. VASCULATURE: No aortic aneurysm. BONES: No acute osseous abnormality is detected. OTHER FINDINGS: None. IMPRESSION: Moderate diffuse constipation. Progress Note: Blood work, UA, Abd & Pelvis CT ordered and reviewed. Patient was given Zofran and IV fluids. Patient is resting comfortably, abdomen remains soft, and patient is tolerating PO. Discussed CT findings with patient, and was advised on the need to perform an ultrasound. However, pt states she feels better and refuses further imaging. Pt was instructed to return to ED if symptoms persist or worsen. Pt was advised to follow up with PMD in 1-2 days. Disposition - Disposition Referrals: [facility] at [facility] [Outside] Disposition: HOME/ ROUTINE Disposition Time: 17:57 Condition: STABLE Additional Instructions: Follow up in Clinic within 1-2 days. Return to ED immediately if feel worse. Prescriptions: Docusate Sodium [Colace] 100 mg PO BID #30 capsule Instructions: Constipation (ED), Abdominal Pain (ED) Forms: [employer] (Somali) Print Language: EMIRATI - Clinical Impression Clinical Impression: Constipation, Abdominal pain - PA / OFFICE ADMINISTRATOR / Resident Statement MD/DO has reviewed & agrees with the documentation as recorded. - Scribe Statement The provider has reviewed the documentation as recorded by the Scribe Liudmila Oliver All medical record entries made by the Eileenibparvin were at my direction and personally dictated by me. I have reviewed the chart and agree that the record accurately reflects my personal performance of the history, physical exam, medical decision making, and the department course for this patient. I have also personally directed, reviewed, and agree with the discharge instructions and disposition.
[2017-12-12] MEDS ORDERED: Iohexol 240 (50 ml) ONE (13:54)
[2017-12-12] MEDS ORDERED: Sodium Chloride 0.9% 1,000 ML ONE (13:55)
[2017-12-12 13:59] LABS: HCG,QUALITATIVE URINE NEGATIVE (NEGATIVE)
[2017-12-12 14:00] LABS: BASO % 0.4 % (0.0-2.0); EOS # 0.1 K/uL (0.0-0.7); EOS % 1.1 % (0.0-4.0); LYMPH # 1.9 K/uL (1.0-4.3); MEAN CELL VOLUME 89.9 fL (81.0-99.0); MEAN CORPUSCULAR HEMOGLOBIN 30.7 pg (27.0-31.0); MEAN CORPUSCULAR HGB CONC 34.1 g/dL (33.0-37.0); MEAN PLATELET VOLUME 8.8 fL (7.2-11.7); MONO # 0.5 K/uL (0.0-0.8); MONO % 7.1 % (0.0-10.0); NEUT # 3.9 K/uL (1.8-7.0); NEUT % 61.4 % (50.0-75.0); RBC 4.24 Mil/uL (3.80-5.20); RED CELL DISTRIBUTION WIDTH 13.3 % (11.5-14.5); WHITE BLOOD COUNT 6.4 K/uL (4.8-10.8)
[2017-12-12 14:07] LABS: ALB/GLOB RATIO 1.3 (1.0-2.1); ALBUMIN 4.1 g/dL (3.5-5.0); ALT/SGPT 17 U/L (9-52); AST/SGOT 17 U/L (14-36); BLOOD UREA NITROGEN 17 mg/dL (7-17); CALCIUM 8.4 mg/dl (8.6-10.4); GFR AFRICAN-AMERICAN > 60; GFR NON-AFRICAN AMERICAN > 60; LIPASE 60 U/L (23-300)
[2017-12-12 14:10] LABS: SQUAMOUS EPITHIAL 1 /hpf (0-5); URINE BILIRUBIN NEGATIVE (NEGATIVE); URINE BLOOD NEGATIVE (NEGATIVE); URINE CLARITY Turbid (Clear); URINE COLOR Yellow (YELLOW); URINE GLUCOSE (UA) NORMAL (Normal); URINE LEUKOCYTE ESTERASE NEG Leu/uL (Negative); URINE NITRATE NEGATIVE (NEGATIVE); URINE PROTEIN NEGATIVE (NEGATIVE); URINE UROBILINOGEN NORMAL mg/dL (0.2-1.0)
[2017-12-12 14:26] LABS: URINE AMORPHOUS SEDIMENT MODERATE /ul (<OCC); URINE BACTERIA RARE (<OCC)
[2017-12-12] MEDS ORDERED: Iodixanol 320 MG/ML 100 ML BOTTLE IV ONE (15:39)
--- NOTE | 2017-12-12 16:17 | CT ---
PROCEDURE: CT Abdomen and Pelvis with oral and IV contrast. HISTORY: RLQ abd pain COMPARISON: CT abdomen and pelvis with contrast performed 06/21/17 TECHNIQUE: Contiguous axial images of the abdomen and pelvis. Oral and IV contrast was administered. Coronal and Sagittal reformats generated and reviewed. Contrast dose: 100 mL Visipaque IV Radiation dose: Total exam DLP = 316.26 mGy-cm. This CT exam was performed using one or more of the following dose reduction techniques: Automated exposure control, adjustment of the mA and/or kV according to patient size, and/or use of iterative reconstruction technique. FINDINGS: LOWER THORAX: No visible consolidation, pleural effusion, or pneumothorax. LIVER: Unremarkable. GALLBLADDER AND BILE DUCTS: Unremarkable. PANCREAS: Unremarkable. SPLEEN: Unremarkable. ADRENALS: Unremarkable. KIDNEYS AND URETERS: The kidneys enhance symmetrically. No hydronephrosis or obstructing renal calculus. BLADDER: The urinary bladder appears unremarkable. REPRODUCTIVE: Uterus is present. APPENDIX: The appendix appears within normal limits of caliber. No secondary signs of acute appendicitis. BOWEL: The stomach is nondistended. The bowel loops appear within normal limits of caliber without evidence of intestinal obstruction. Moderate diffuse constipation. PERITONEUM: No significant free fluid. No definite free air. LYMPH NODES: No bulky lymphadenopathy identified. VASCULATURE: No aortic aneurysm. BONES: No acute osseous abnormality is detected. OTHER FINDINGS: None. IMPRESSION: Moderate diffuse constipation.
[2017-12-12 16:45] VITALS: O2SAT 96
[2017-12-12 18:31] VITALS: BP 117/76; PULSE 74; RESP 16; TEMP 98.1
== END 2017-12-12 18:15 | disposition home or self-care (01) ==
LOC: C.ER 11:57
DX: K59.00 Constipation, unspecified (principal); R10.31 Right lower quadrant pain
CPT/HCPCS: 74177; 80053; 81001; 83690; 84703; 85025; 96361; 96374; 99285; J2405; J7040; Q9966; Q9967

== ENCOUNTER 2017-12-19 08:43 | Emergency (ER) | payer OTHER ==
[2017-12-19 10:01] LABS: HCG,QUALITATIVE URINE NEGATIVE (NEGATIVE)
[2017-12-19 10:05] LABS: SQUAMOUS EPITHIAL 2 /hpf (0-5); URINE BACTERIA RARE (<OCC); URINE BILIRUBIN NEGATIVE (NEGATIVE); URINE BLOOD NEGATIVE (NEGATIVE); URINE CLARITY Clear (Clear); URINE COLOR Yellow (YELLOW); URINE GLUCOSE (UA) NORMAL (Normal); URINE LEUKOCYTE ESTERASE NEG Leu/uL (Negative); URINE NITRATE NEGATIVE (NEGATIVE); URINE PROTEIN NEGATIVE (NEGATIVE); URINE UROBILINOGEN NORMAL mg/dL (0.2-1.0)
--- NOTE | 2017-12-19 10:23 | C.PDOC ---
History Of Present Illness 27yo female, presents to ED with complaining of lower abdominal pain, which she describes as cramping, present since yesterday. Patient also noticed some brown discharge which turned into light bleeding yesterday; she also reports associated dysuria. Patient denies any bleeding today but states she is 10 weeks ; her LMP was 09/28/2017. She denies any nausea, vomiting, diarrhea. Time Seen by Provider: 12/19/17 09:17 Chief Complaint (Nursing): Abdominal Pain History Per: Patient History/Exam Limitations: no limitations Onset/Duration Of Symptoms: Days Current Symptoms Are (Timing): Still Present Location Of Pain/Discomfort: RLQ, LLQ Quality Of Discomfort: "Pain" Associated Symptoms: Urinary Symptoms. denies: Fever, Chills, Nausea, Vomiting , Diarrhea Additional History Per: Patient Abnormal Vaginal Bleeding: Yes Last Menstral Period: 09/28/17 Past Medical History Reviewed: Historical Data, Nursing Documentation, Vital Signs Vital Signs: Last Vital Signs Temp 97.9 F 12/19/17 10:48 Pulse 72 12/19/17 10:48 Resp 20 12/19/17 10:48 BP 117/74 12/19/17 10:48 Pulse Ox 100 12/23/17 04:57 - Medical History PMH: No Chronic Diseases Surgical History: No Surg Hx Family History: States: Unknown Family Hx - Social History Hx Alcohol Use: No Hx Substance Use: No - Immunization History Hx Tetanus Toxoid Vaccination: No Hx Influenza Vaccination: No Hx Pneumococcal Vaccination: No Review Of Systems Constitutional: Negative for: Fever Cardiovascular: Negative for: Chest Pain, Palpitations Respiratory: Negative for: Cough, Shortness of Breath Gastrointestinal: Positive for: Abdominal Pain (lower). Negative for: Nausea, Vomiting, Diarrhea Genitourinary: Positive for: Dysuria, Vaginal Discharge (brown) Skin: Negative for: Rash Physical Exam - Physical Exam Appears: Non-toxic, No Acute Distress Skin: Normal Color, Warm, Dry, No Diaphoretic, No Pale Head: Atraumatic, Normacephalic Eye(s): bilateral: Normal Inspection, EOMI Neck: Supple Cardiovascular: Rhythm Regular, No Murmur Respiratory: Normal Breath Sounds, No Wheezing Gastrointestinal/Abdominal: Bowel Sounds, Soft, Tenderness (mild suprapubic tenderness), No Distention, No Guarding Back: Normal Inspection, No CVA Tenderness Pelvic: Normal Speculum Exam, No Vaginal Bleeding, Vaginal Discharge (thin white milky discharge, no odor noted), No Cervix Open, No Adnexal Tenderness Extremity: Bilateral: Atraumatic, Normal Color And Temperature, Normal ROM Neurological/Psych: Oriented x3, Normal Speech Gait: Steady ED Course And Treatment O2 Sat by Pulse Oximetry: 100 (RA) Pulse Ox Interpretation: Normal Medical Decision Making Medical Decision Making: Impression: Lower abdominal pain Prior charts reviewed and patient was seen last week by provider. No mention of . Labs reviewed and patient was not ; CT scan of abdomen showed constipation. Plan: -- Urinalysis -- Urine HCG Progress: UA and Hcg negative. Pelvic exam performed and cultures obtained and sent to lab. Patient is still requesting ultrasound. She states she has not had menses since 09/2017. I explained to the patient and at bedside in Kazakh, that her urine tests were negative for last week and this week. She needs to follow up with her lpn or medical assistant regarding irregular menses, and that she may need bloodwork for thyroid and hormone testing. Abdominal pain may be related to constipation, seen on CT last week and also will treat vaginitis with Metrogel. Patient given follow up instructions. Instructed to return to ER if symptoms worsen or new symptoms arise. Disposition Counseled Patient/Family Regarding: Diagnosis, Need For Followup, Rx Given - [facility]position [facility] [[facility]] Disposition: HOME/ ROUTINE Disposition Time: 10:50 Condition: GOOD Additional Instructions: Tu prueba de orina fue negativa para el embarazo Inserte la crema vaginal todas las noches linda arimn semana seguimiento en la clnica para ms lizarraga rakel Prescriptions: Metronidazole [Metrogel-Vaginal] 1 ea VG DAILY #1 gel Instructions: Vaginitis (ED) Forms: [employer] (Setswana) Print Language: EQUATORIAL GUINEAN - POA Present On Arrival: None - Clinical Impression Clinical Impression: Negative test, Lower abdominal pain, Vaginal discharge - PA / NEWS CLIPPING CUTTER / Resident Statement MD/DO has reviewed & agrees with the documentation as recorded. - Scribe Statement The provider has reviewed the documentation as recorded by the Scribe Nneka Caba Provider Scribe Attestation: All medical record entries made by the Scribe were at my direction and personally dictated by me. I have reviewed the chart and agree that the record accurately reflects my personal performance of the history, physical exam, medical decision making, and the department course for this patient. I have also personally directed, reviewed, and agree with the discharge instructions and disposition.
[2017-12-19 10:49] VITALS: BP 117/74; PULSE 72; RESP 20; TEMP 97.9
[2017-12-23 04:57] VITALS: O2SAT 100
== END 2017-12-19 10:49 | disposition home or self-care (01) ==
LOC: C.ER 08:43
DX: N89.8 Other specified noninflammatory disorders of vagina (principal); R10.30 Lower abdominal pain, unspecified; Z32.02 Encounter for pregnancy test, result negative

== ENCOUNTER 2018-04-23 14:53 | Emergency (ER) | payer OTHER ==
[2018-04-23 15:00] VITALS: TEMP 98; O2SAT 98
[2018-04-23 15:50] LABS: SQUAMOUS EPITHIAL 4 /hpf (0-5); URINE BILIRUBIN NEGATIVE (NEGATIVE); URINE BLOOD NEGATIVE (NEGATIVE); URINE CLARITY Clear (Clear); URINE COLOR Yellow (YELLOW); URINE GLUCOSE (UA) NORMAL (Normal); URINE LEUKOCYTE ESTERASE NEG Leu/uL (Negative); URINE PROTEIN NEGATIVE (NEGATIVE); URINE UROBILINOGEN NORMAL mg/dL (0.2-1.0)
[2018-04-23 16:21] LABS: BASO % 0.2 % (0.0-2.0); EOS # 0.5 K/uL (0.0-0.7); EOS % 5.9 % (0.0-4.0); HEMOGLOBIN 13.2 g/dL (11.0-16.0); LYMPH # 2.2 K/uL (1.0-4.3); LYMPH % 27.3 % (20.0-40.0); MEAN CORPUSCULAR HEMOGLOBIN 30.6 pg (27.0-31.0); MEAN CORPUSCULAR HGB CONC 33.5 g/dL (33.0-37.0); MEAN PLATELET VOLUME 9.3 fL (7.2-11.7); MONO # 0.7 K/uL (0.0-0.8); MONO % 8.2 % (0.0-10.0); NEUT # 4.8 K/uL (1.8-7.0); NEUT % 58.4 % (50.0-75.0); NRBC % 0.1 % (0.0-2.0); RBC 4.31 Mil/uL (3.80-5.20); RED CELL DISTRIBUTION WIDTH 13.4 % (11.5-14.5); WHITE BLOOD COUNT 8.2 K/uL (4.8-10.8)
[2018-04-23 16:22] LABS: MEAN CELL VOLUME 91.3 fL (81.0-99.0)
--- NOTE | 2018-04-23 16:29 | C.PDOC ---
History Of Present Illness 27 y/o female with lmp 4/4, either , or , presents to ED with lower abdominal pain, dysuria and decreasing vaginal daily bleeding for last 3 weeks. pt was seen in ed 3 weeks ago, told she was and advised to return to ed in 2 days for repeat bchg and sonogram, but hadn't returned, nor followed up outpatient with toaster element repairer, and no future appts scheduled. pt reports passing clots over last few weeks. pt also c/o right breast pain tingling sensation x 3 weeks with occasional white nipple discharge. Time Seen by Provider: 04/23/18 15:04 Chief Complaint (Nursing): Abdominal Pain History Per: Patient History/Exam Limitations: no limitations Onset/Duration Of Symptoms: Days (21) Current Symptoms Are (Timing): Still Present Location Of Pain/Discomfort: RLQ, LLQ Quality Of Discomfort: Other (Tingling) Associated Symptoms: Urinary Symptoms. denies: Fever, Chills, Nausea, Vomiting , Diarrhea Exacerbating Factors: None Alleviating Factors: None Last Bowel Movement: Today Recent travel outside of the [place]: No Abnormal Vaginal Bleeding: Yes Last Menstral Period: 03/01 : 3 Para: 0 Past Medical History Reviewed: Historical Data, Nursing Documentation, Vital Signs Vital Signs: Last Vital Signs Temp 98 F 04/23/18 17:53 Pulse 70 04/23/18 17:53 Resp 18 04/23/18 17:53 BP 100/63 04/23/18 17:53 Pulse Ox 98 04/24/18 07:26 - Medical History PMH: No Chronic Diseases Surgical History: No Surg Hx Family History: States: Unknown Family Hx - Social History Hx Alcohol Use: No Hx Substance Use: No - Immunization History Hx Tetanus Toxoid Vaccination: No Hx Influenza Vaccination: No Hx Pneumococcal Vaccination: No Review Of Systems Constitutional: Positive for: Other (Right breast pain with occasional white discharge ). Negative for: Fever, Chills Gastrointestinal: Positive for: Abdominal Pain (Lower abdomen ). Negative for: Nausea, Vomiting, Diarrhea Genitourinary: Positive for: Dysuria, Vaginal Bleeding Skin: Negative for: Rash Neurological: Negative for: Weakness, Numbness Physical Exam - Physical Exam Appears: Non-toxic, No Acute Distress Skin: Warm, Dry Head: Atraumatic, Normacephalic Eye(s): bilateral: Normal Inspection, PERRL, EOMI Oral Mucosa: Moist Neck: Supple Chest: Symmetrical, Tenderness (Bilateral, superior to nipples with no associated swelling, redness or warmth, no masses palpated. ), Other (Breast shows scant white dicharge of right nipple ) Cardiovascular: Rhythm Regular, No Murmur Respiratory: Normal Breath Sounds, No Decreased Breath Sounds, No Rales, No Rhonchi, No Wheezing Gastrointestinal/Abdominal: Soft, Tenderness (Mild suprapubic ), No Distention Extremity: Normal ROM, No Tenderness, No Pedal Edema Extremity: Bilateral: Normal Color And Temperature, Normal ROM Neurological/Psych: Oriented x3, Normal Speech, Normal Cognition Gait: Steady ED Course And Treatment - Laboratory Results Result Diagrams: 04/23/18 16:16 04/23/18 16:16 O2 Sat by Pulse Oximetry: 98 (RA) Pulse Ox Interpretation: Normal Medical Decision Making Medical Decision Making: Administered Tylenol. Ordered blood work, urine culture and urinalysis. pt reports she is with ab pain, seen in ed 3 weeks ago for same. upreg neg in ed. bhcg less than 2. was 123 3 weeks ago. based on these labs, pt is no longer and had a complete miscarriage. pt's blood type is o positive, no need for rhogam. 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 Disposition Counseled Patient/Family Regarding: Studies Performed, Diagnosis, Need For Followup - Disposition Referrals: [place] [facility] [Outside] [facility] [Outside] [facility] [Outside] Disposition: HOME/ ROUTINE Disposition Time: 18:10 Condition: GOOD Additional Instructions: Ya no ests embarazada Parece que has tenido un aborto espontneo. Se recomienda encarecidamente que complete la ginecologa lo antes posible en la [facility] [place] o [facility] para evaluar mejor el dolor de seno y averiguar por qu contina teniendo abortos espontneos. Regrese a la nirmal de emergencias por cualquier sntoma peor. You are no longer . It appears that you have had a miscarriage. It is highly recommended that you folllow up with gynecology as soon as possible at the [facility] [place] or [facility] to further evaluate breast pain and to find out why you keep having miscarriages. Return to ER for any worse symptoms. Forms: Gen Discharge Inst Jordanian, [facility] (Jordanian) Print Language: YORUBA - Clinical Impression Clinical Impression: Complete , Breast pain in female - PA / LOAD OUT WORKER / Resident Statement MD/DO has reviewed & agrees with the documentation as recorded. - Scribe Statement The provider has reviewed the documentation as recorded by the Eileenibparvin Orantes All medical record entries made by the Carito were at my direction and personally dictated by me. I have reviewed the chart and agree that the record accurately reflects my personal performance of the history, physical exam, medical decision making, and the department course for this patient. I have also personally directed, reviewed, and agree with the discharge instructions and disposition.
[2018-04-23 16:52] LABS: ALB/GLOB RATIO 1.2 (1.0-2.1); ALT/SGPT 24 U/L (9-52); AST/SGOT 20 U/L (14-36); BLOOD UREA NITROGEN 9 mg/dL (7-17); CALCIUM 9.1 mg/dl (8.6-10.4); GFR AFRICAN-AMERICAN > 60; GFR NON-AFRICAN AMERICAN > 60
[2018-04-23 17:54] VITALS: BP 100/63; PULSE 70; RESP 18
== END 2018-04-23 18:22 | disposition home or self-care (01) ==
LOC: C.ER 14:53
DX: O03.9 Complete or unspecified spontaneous abortion without complication (principal); N64.4 Mastodynia

== ENCOUNTER 2018-06-17 08:40 | Emergency (ER) | payer OTHER ==
[2018-06-17 08:46] VITALS: BMI 22.4
--- NOTE | 2018-06-17 09:35 | C.PDOC ---
History Of Present Illness 27 y/o female presents to ED c/o left wrist pain that developed after moving the couch yesterday. Notes taking Tylenol for pain around 6 this morning. Pt is right hand dominant. Denies direct trauma, change in sensation, or any other associated symptoms at this time. Time Seen by Provider: 06/17/18 08:50 Chief Complaint (Nursing): Finger,Hand,&Wrist History Per: Patient, Butcher Scullion ([email or web address]) History/Exam Limitations: no limitations Onset/Duration Of Symptoms: Days Current Symptoms Are (Timing): Still Present Quality: "Pain" Exacerbating Factor(s): Nothing Recent travel outside of the [place]: No Additional History Per: Patient Past Medical History Reviewed: Historical Data, Nursing Documentation, Vital Signs Vital Signs: Last Vital Signs Temp 98.0 F 06/17/18 10:01 Pulse 72 06/17/18 10:01 Resp 16 06/17/18 10:01 BP 111/70 06/17/18 10:01 Pulse Ox 99 06/17/18 10:01 Family History: States: Unknown Family Hx - Social History Hx Alcohol Use: No Hx Substance Use: No - Immunization History Hx Tetanus Toxoid Vaccination: No Hx Influenza Vaccination: No Hx Pneumococcal Vaccination: No Review Of Systems Except As Marked, All Systems Reviewed And Found Negative. Constitutional: Negative for: Fever, Chills Musculoskeletal: Positive for: Hand Pain (left wrist) Neurological: Negative for: Weakness, Numbness Physical Exam - Physical Exam Appears: Non-toxic, No Acute Distress Skin: Warm, Dry, Other (ganglion cyst to dorsal aspect of left wrist) Head: Atraumatic, Normacephalic Eye(s): bilateral: Normal Inspection, EOMI Nose: Normal Oral Mucosa: Moist Neck: Normal ROM, Supple Chest: Symmetrical Respiratory: No Accessory Muscle Use Extremity: No Normal ROM (decreased ROM of left wrist secondary to pain), Tenderness (dorsal aspect of left wrist), Capillary Refill (less than 2 seconds) , No Deformity, No Swelling Extremity: Bilateral: Normal Color And Temperature Pulses: Left Radial: Normal Neurological/Psych: Oriented x3, Normal Speech, Normal Sensation ED Course And Treatment O2 Sat by Pulse Oximetry: 98 Pulse Ox Interpretation: Normal - Other Rad Left wrist x-ray X-Ray: Interpreted by Me, Viewed By Me Interpretation: No acute fracture or dislocation. Progress Note: Left wrist x-ray ordered and reviewed. Wrist immobilizer applied by medical office technologist. Pt is being discharged home with instructions to follow up with ortho in 1-3 days for further evaluation. Disposition - Disposition Referrals: Amie Machuca MD [Staff Provider] - Disposition: HOME/ ROUTINE Disposition Time: 09:27 Condition: STABLE Additional Instructions: Vaya a ya mdico o la clnica en 1-3 roque sin falta, para mas evaluacin. Floyd los medicamentos misael indicado. Volver a la nirmal de emergencia en cualquier momento si los sntomas persisten o empeoran. Instructions: Wrist Sprain (DC) Forms: [employer] (Sammarinese) - Clinical Impression Clinical Impression: Wrist sprain, Ganglion cyst of dorsum of left wrist - PA / REFERENCE INVESTIGATOR / Resident Statement MD/DO has reviewed & agrees with the documentation as recorded. - Scribe Statement The provider has reviewed the documentation as recorded by the Scribe KP All medical record entries made by the Scribe were at my direction and personally dictated by me. I have reviewed the chart and agree that the record accurately reflects my personal performance of the history, physical exam, medical decision making, and the department course for this patient. I have also personally directed, reviewed, and agree with the discharge instructions and disposition.
[2018-06-17 10:02] VITALS: BP 111/70; PULSE 72; RESP 16; TEMP 98
--- NOTE | 2018-06-17 10:14 | RAD ---
Date of service: 06/17/2018 PROCEDURE: Left Wrist Radiographs. HISTORY: pain COMPARISON: None. FINDINGS: BONES: No acute fracture or destructive bony lesion identified. JOINTS: Normal. No dislocation. SOFT TISSUES: A nonspecific faint radiodensity seen in the superficial dorsal distal forearm soft tissues potentially reflecting a phlebolith or other vascular calcification though retained foreign body is not excluded. No emphysematous soft tissue changes or edema appears related here. OTHER FINDINGS: None. IMPRESSION: No acute fracture dislocation left wrist. Nonspecific radiodense the dorsal distal left forearm soft tissues.
[2018-06-17 10:16] VITALS: O2SAT 98
== END 2018-06-17 10:01 | disposition home or self-care (01) ==
LOC: C.ER 08:40
DX: S63.502A Unspecified sprain of left wrist, initial encounter (principal); X50.0XXA Overexertion from strenuous movement or load, initial encounter; Y93.E9 Activity, other interior property and clothing maintenance; Y92.89 Other specified places as the place of occurrence of the external cause; M67.432 Ganglion, left wrist

== ENCOUNTER 2018-06-24 13:02 | Emergency (ER) | payer OTHER ==
[2018-06-24 13:02] VITALS: BMI 22.4
[2018-06-24 13:06] VITALS: BP 122/80; PULSE 68; RESP 18; TEMP 98.3; O2SAT 99
--- NOTE | 2018-06-24 13:25 | C.PDOC ---
History Of Present Illness 27 year old female presents to the ER complaining of persistent pain to the left wrist for one week. Patient was in the ER on 06/17/18 for similar presentation. Patient denies any weakness, numbness, or tingling. Time Seen by Provider: 06/24/18 13:20 Chief Complaint (Nursing): Finger,Hand,&Wrist History Per: Patient History/Exam Limitations: no limitations Onset/Duration Of Symptoms: Days Current Symptoms Are (Timing): Still Present Quality: "Pain" Exacerbating Factor(s): Movement Past Medical History Reviewed: Historical Data, Nursing Documentation, Vital Signs Vital Signs: Last Vital Signs Temp 98.3 F 06/24/18 13:05 Pulse 68 06/24/18 13:05 Resp 18 06/24/18 13:33 BP 122/80 06/24/18 13:05 Pulse Ox 99 06/24/18 13:41 - Medical History PMH: No Chronic Diseases Surgical History: No Surg Hx Family History: States: No Known Family Hx - Social History Hx Alcohol Use: No Hx Substance Use: No - Immunization History Hx Tetanus Toxoid Vaccination: No Hx Influenza Vaccination: No Hx Pneumococcal Vaccination: No Review Of Systems Except As Marked, All Systems Reviewed And Found Negative. Musculoskeletal: Positive for: Other (Left wrist pain ) Neurological: Negative for: Weakness, Numbness Physical Exam - Physical Exam Appears: Non-toxic, No Acute Distress Skin: Normal Color, Warm, Dry Head: Atraumatic Eye(s): bilateral: Normal Inspection Neck: Normal ROM Extremity: Normal ROM, Tenderness (Mild tenderness to left wrist ), Capillary Refill (< 2 sec to left wrist), Other ( cyst structure to the dorsum of left wrist, mobile, no erythema, no warmth, no open lesions ) Pulses: Left Radial: Normal, Right Radial: Normal Neurological/Psych: Oriented x3, Normal Speech, Normal Motor, Normal Sensation, Normal Reflexes Disoriented To: Person ED Course And Treatment O2 Sat by Pulse Oximetry: 99 (RA) Pulse Ox Interpretation: Normal Progress Note: Patient advised to follow up with Ortho clinic. Patient given Rx for Naproxen. Patient stable and ready for discharge. Disposition - Disposition Referrals: [facility] [Outside] [facility] [Outside] Disposition: HOME/ ROUTINE Disposition Time: 13:22 Condition: STABLE Additional Instructions: Follow up in Ortho clinic within 2-3 days. Return to ED if feel worse. Prescriptions: Naproxen [Naprosyn] 1 tab PO BID PRN #25 tab PRN Reason: Pain Instructions: Ganglion Cyst (DC) Forms: [employer] (Estonian) Print Language: GREEK - Clinical Impression Clinical Impression: Ganglion cyst of dorsum of left wrist - PA / K 12 PRINCIPAL / Resident Statement MD/DO has reviewed & agrees with the documentation as recorded. - Scribe Statement The provider has reviewed the documentation as recorded by the Scribe Aubree Cornell All medical record entries made by the Carito were at my direction and personally dictated by me. I have reviewed the chart and agree that the record accurately reflects my personal performance of the history, physical exam, medical decision making, and the department course for this patient. I have also personally directed, reviewed, and agree with the discharge instructions and disposition.
== END 2018-06-24 13:33 | disposition home or self-care (01) ==
LOC: C.ER 13:02
DX: M67.432 Ganglion, left wrist (principal)

== ENCOUNTER 2018-08-11 13:13 | Emergency (ER) | payer OTHER ==
[2018-08-11 13:27] VITALS: BP 106/71; TEMP 98.5; BMI 21.9
--- NOTE | 2018-08-11 14:51 | C.PDOC ---
History Of Present Illness 27 y/o female presents to the ED with several month history of a painful swelling to the left wrist. Patient reports that she initially followed up with the clinic and was unable to get an orthopedist appointment. Denies any trauma. Denies associated fever, numbness, weakness, tingling. Time Seen by Provider: 08/11/18 13:59 Chief Complaint (Nursing): Upper Extremity Problem/Injury History Per: Patient History/Exam Limitations: no limitations Onset/Duration Of Symptoms: Days Current Symptoms Are (Timing): Still Present Past Medical History Reviewed: Historical Data, Nursing Documentation, Vital Signs Vital Signs: Last Vital Signs Temp 98.5 F 08/11/18 13:51 Pulse 77 08/11/18 15:16 Resp 18 08/11/18 15:16 BP 106/71 08/11/18 13:51 Pulse Ox 100 08/11/18 16:58 Surgical History: No Surg Hx Family History: States: Unknown Family Hx - Social History Hx Alcohol Use: No Hx Substance Use: No - Immunization History Hx Tetanus Toxoid Vaccination: No Hx Influenza Vaccination: No Hx Pneumococcal Vaccination: No Review Of Systems Musculoskeletal: Positive for: Other (painful swelling to left wrist). Negative for: Arm Pain, Hand Pain Skin: Negative for: Rash, Lesions Neurological: Negative for: Weakness, Numbness, Incoordination Physical Exam - Physical Exam Appears: Non-toxic, No Acute Distress Skin: Warm, Dry, Other (1.5 cm soft mobile cyst to the dorsum of left wrist; No erythema, induration, or fluctuance) Head: Atraumatic, Normacephalic Eye(s): bilateral: Normal Inspection Extremity: Normal ROM, No Tenderness, Capillary Refill (less than 2 sec), No Deformity Pulses: Left Radial: Normal, Right Radial: Normal Neurological/Psych: Oriented x3, Normal Speech ED Course And Treatment O2 Sat by Pulse Oximetry: 100 (RA) Pulse Ox Interpretation: Normal Medical Decision Making Medical Decision Making: Plan: * Toradol 30 mg IM Patient is stable for discharge home. Provided with rx for pain medication and advised to follow up with orthopedist. Disposition Counseled Patient/Family Regarding: Diagnosis, Need For Followup, Rx Given - Disposition Referrals: [facility] [Outside] [facility] [Outside] Rigoberto Barrera MD [Staff Provider] - Disposition: HOME/ ROUTINE Disposition Time: 14:50 Condition: STABLE Additional Instructions: Follow up with the Orthopedist/Hand surgeon within 1-2 days. Return if worsened. Prescriptions: Naproxen [Naprosyn] 500 mg PO BID #20 tab Instructions: Ganglion Cyst (DC) Forms: [employer] (Welsh) Print Language: ANDORRAN - POA Present On Arrival: None - Clinical Impression Clinical Impression: Ganglion cyst - PA / FRUIT RAISER / Resident Statement MD/DO has reviewed & agrees with the documentation as recorded. - Scribe Statement The provider has reviewed the documentation as recorded by the Scribe (Leonie Berumen) All medical record entries made by the Scribe were at my direction and personally dictated by me. I have reviewed the chart and agree that the record accurately reflects my personal performance of the history, physical exam, medical decision making, and the department course for this patient. I have also personally directed, reviewed, and agree with the discharge instructions and disposition.
[2018-08-11 15:18] VITALS: PULSE 77; RESP 18
[2018-08-11 16:58] VITALS: O2SAT 100
== END 2018-08-11 15:17 | disposition home or self-care (01) ==
LOC: C.ER 13:13
DX: M67.432 Ganglion, left wrist (principal)
CPT/HCPCS: 96372; 99284; J1885

== ENCOUNTER 2018-09-04 19:01 | Emergency (ER) | payer OTHER ==
[2018-09-04 19:01] VITALS: BMI 22.3
[2018-09-04 19:27] VITALS: TEMP 98.3; O2SAT 99
[2018-09-04 19:39] LABS: HCG,QUALITATIVE URINE NEGATIVE (NEGATIVE); SQUAMOUS EPITHIAL 1 /hpf (0-5); URINE BILIRUBIN NEGATIVE (NEGATIVE); URINE CLARITY Clear (Clear); URINE COLOR Straw (YELLOW); URINE GLUCOSE (UA) NORMAL (Normal); URINE LEUKOCYTE ESTERASE NEG Leu/uL (Negative); URINE PROTEIN NEGATIVE (NEGATIVE); URINE UROBILINOGEN NORMAL mg/dL (0.2-1.0)
[2018-09-04 19:50] LABS: URINE BLOOD TRACE (NEGATIVE)
[2018-09-04 20:10] LABS: BASO % 0.3 % (0.0-2.0); EOS # 0.1 K/uL (0.0-0.7); EOS % 1.6 % (0.0-4.0); HEMOGLOBIN 13.1 g/dL (11.0-16.0); LYMPH # 2.2 K/uL (1.0-4.3); LYMPH % 37.6 % (20.0-40.0); MEAN CELL VOLUME 89.9 fL (81.0-99.0); MEAN CORPUSCULAR HEMOGLOBIN 31.4 pg (27.0-31.0); MEAN CORPUSCULAR HGB CONC 34.9 g/dL (33.0-37.0); MEAN PLATELET VOLUME 8.7 fL (7.2-11.7); MONO # 0.4 K/uL (0.0-0.8); MONO % 7.3 % (0.0-10.0); NEUT # 3.2 K/uL (1.8-7.0); NEUT % 53.2 % (50.0-75.0); NRBC % 0.1 % (0.0-2.0); RBC 4.18 Mil/uL (3.80-5.20); RED CELL DISTRIBUTION WIDTH 13.2 % (11.5-14.5)
--- NOTE | 2018-09-04 20:26 | C.PDOC ---
History Of Present Illness 27 y/o female, w/ no significant PMhx, presents to the ER complaining of RUQ abdominal pain which has been present for the past 2 days. Patient states that the pain is non-radiating. Patient reports that she has associated non bloody, non-bilious vomiting x 4 and intermittent diarrhea. She notes that she is currently on her menstrual period, she has normal timing and blood flow. Denies having fever, chills, CP, and SOB. Time Seen by Provider: 09/04/18 20:07 Chief Complaint (Nursing): Abdominal Pain History Per: Patient History/Exam Limitations: no limitations Onset/Duration Of Symptoms: Days Current Symptoms Are (Timing): Still Present Severity: Moderate Past Medical History Reviewed: Historical Data, Nursing Documentation, Vital Signs Vital Signs: Last Vital Signs Temp 98.3 F 09/04/18 19:25 Pulse 72 09/04/18 19:25 Resp 19 09/04/18 19:25 BP 106/70 09/04/18 19:25 Pulse Ox 99 09/04/18 19:25 - Medical History PMH: No Chronic Diseases Surgical History: No Surg Hx Family History: States: No Known Family Hx - Social History Hx Alcohol Use: No Hx Substance Use: No - Immunization History Hx Tetanus Toxoid Vaccination: No Hx Influenza Vaccination: No Hx Pneumococcal Vaccination: No Review Of Systems Except As Marked, All Systems Reviewed And Found Negative. Constitutional: Negative for: Fever, Chills Cardiovascular: Negative for: Chest Pain Respiratory: Negative for: Shortness of Breath Gastrointestinal: Positive for: Vomiting, Abdominal Pain, Diarrhea. Negative for: Nausea Physical Exam - Physical Exam Additional Physical Exam Comments: Constitutional: No acute distress. Head: Normocephalic. Atraumatic. Eyes: PERRL. ENT: Moist mucous membranes. Neck: Supple. Cardiovascular: Regular rate. Radial pulse 2+ bilaterally. Chest: No tenderness. Respiratory: Clear to auscultation bilaterally. GI: Soft. RUQ tenderness. Mild guarding. Nondistended. Back: No CVA tenderness. Musculoskeletal: No tenderness or swelling of extremities. Skin: No rash. ED Course And Treatment - Laboratory Results Result Diagrams: 09/04/18 20:06 09/04/18 20:06 O2 Sat by Pulse Oximetry: 99 Medical Decision Making Medical Decision Making: Plan: --Labs --UA --HCG --US- Abdomen Impression: Gallbladder polyps. No acute pathology. Patient states she is feeling well without symptoms now. Discharged home, f/u PMD and GI, return to ED for worsening pain, fever, vomiting, dyspnea, or any other problem. Disposition - Disposition Referrals: Marcie Tellez [Staff Provider] - Disposition: HOME/ ROUTINE Disposition Time: 22:00 Condition: STABLE Instructions: Acute Abdomen (Belly Pain), Adult (DC) Forms: [employer] (Thai) - Clinical Impression Clinical Impression: Gall bladder polyp - Scribe Statement The provider has reviewed the documentation as recorded by the Scribe Morgan Renae Provider Attestation: All medical record entries made by the Scribe were at my direction and personally dictated by me. I have reviewed the chart and agree that the record accurately reflects my personal performance of the history, physical exam, medical decision making, and the department course for this patient. I have also personally directed, reviewed, and agree with the discharge instructions and disposition.
[2018-09-04 20:27] LABS: ALB/GLOB RATIO 1.6 (1.0-2.1); ALBUMIN 4.4 g/dL (3.5-5.0); ALT/SGPT 21 U/L (9-52); AST/SGOT 18 U/L (14-36); BLOOD UREA NITROGEN 13 mg/dL (7-17); CALCIUM 9.4 mg/dl (8.6-10.4); GFR NON-AFRICAN AMERICAN > 60; LIPASE 92 U/L (23-300)
[2018-09-04 22:49] VITALS: BP 108/72; PULSE 66; RESP 18
--- NOTE | 2018-09-05 08:23 | US ---
Date of service: 09/04/2018 HISTORY: RUQ pain COMPARISON: None. TECHNIQUE: Sonographic evaluation of the abdomen. FINDINGS: LIVER: Measures 14.9 cm. Normal echogenicity of the liver parenchyma. No mass. No intrahepatic bile duct dilatation. GALLBLADDER: Multiple very small polyps without posterior acoustic shadowing common nonmobile. No cholelithiasis. No mural thickening. No pericholecystic fluid. Negative sonographic Patel sign. COMMON BILE DUCT: Measures 2 mm. No stones. No dilatation. PANCREAS: Unremarkable as visualized. No mass. No ductal dilatation. RIGHT KIDNEY: Measures 10.0cm. Normal echogenicity. No calculus, mass, or hydronephrosis. LEFT KIDNEY: Measures 10.4cm. Normal echogenicity. No calculus, mass, or hydronephrosis. SPLEEN: Normal in size and contour. No mass. AORTA: No aneurysmal dilatation. IVC: Unremarkable. OTHER FINDINGS: None. IMPRESSION: No evidence of cholelithiasis or cholecystitis. Multiple very small gallbladder polyps, up to 3 mm diameter. Otherwise unremarkable. The preliminary findings for this examination were reported by [facility] at 9:59 p.m. on 09/04/2018. There is concurrence of this report with the preliminary findings.
== END 2018-09-04 23:27 | disposition home or self-care (01) ==
LOC: C.ER 19:01
DX: K82.4 Cholesterolosis of gallbladder (principal)

== ENCOUNTER 2019-02-21 15:21 | Emergency (ER) | payer OTHER ==
[2019-02-21 15:21] VITALS: BMI 22.3
[2019-02-21 16:59] LABS: SQUAMOUS EPITHIAL < 1 /hpf (0-5); URINE AMORPHOUS SEDIMENT RARE /ul (<OCC); URINE BACTERIA RARE (<OCC); URINE BILIRUBIN NEGATIVE (NEGATIVE); URINE BLOOD NEGATIVE (NEGATIVE); URINE CLARITY Hazy (Clear); URINE COLOR Yellow (YELLOW); URINE GLUCOSE (UA) NORMAL (Normal); URINE LEUKOCYTE ESTERASE NEG Leu/uL (Negative); URINE PROTEIN NEGATIVE (NEGATIVE); URINE UROBILINOGEN NORMAL mg/dL (0.2-1.0)
[2019-02-21] MEDS ORDERED: Sodium Chloride 0.9% 1,000 ML IV STA (17:08)
[2019-02-21] MEDS ORDERED: Sodium Chloride 0.9% 1,000 ML ONE (17:47)
[2019-02-21 17:51] LABS: BASO % 0.4 % (0.0-2.0); EOS # 0.1 K/uL (0.0-0.7); EOS % 1.4 % (0.0-4.0); LYMPH # 2.3 K/uL (1.0-4.3); LYMPH % 33.3 % (20.0-40.0); MEAN CELL VOLUME 92.1 fL (81.0-99.0); MEAN CORPUSCULAR HEMOGLOBIN 31.1 pg (27.0-31.0); MEAN CORPUSCULAR HGB CONC 33.7 g/dL (33.0-37.0); MEAN PLATELET VOLUME 8.4 fL (7.2-11.7); MONO # 0.6 K/uL (0.0-0.8); MONO % 8.7 % (0.0-10.0); NEUT # 3.8 K/uL (1.8-7.0); NEUT % 56.2 % (50.0-75.0); NRBC % 0.1 % (0.0-2.0); RBC 4.2 Mil/uL (3.80-5.20); RED CELL DISTRIBUTION WIDTH 13.9 % (11.5-14.5); WHITE BLOOD COUNT 6.8 K/uL (4.8-10.8)
[2019-02-21 18:03] LABS: ALB/GLOB RATIO 1.5 (1.0-2.1); ALBUMIN 4.2 g/dL (3.5-5.0); ALT/SGPT 13 U/L (9-52); AST/SGOT 26 U/L (14-36); BLOOD UREA NITROGEN 12 mg/dL (7-17); CALCIUM 9.4 mg/dl (8.6-10.4); GFR NON-AFRICAN AMERICAN > 60
--- NOTE | 2019-02-21 18:09 | C.PDOC ---
History Of Present Illness 28 y/o female presents to the ED complaining of suprapubic pain and dysuria for the last 2 days. Patient describes burning on urination. No hematuria. She otherwise denies any nausea, vomiting, diarrhea, vaginal discharge, or vaginal bleeding. Time Seen by Provider: 02/21/19 15:51 Chief Complaint (Nursing): Female Genitourinary History Per: Patient History/Exam Limitations: no limitations Onset/Duration Of Symptoms: Days (x 2) Current Symptoms Are (Timing): Still Present Quality Of Discomfort: Burning Associated Symptoms: Urinary Symptoms Past Medical History Reviewed: Historical Data, Nursing Documentation, Vital Signs Vital Signs: Last Vital Signs Temp 98.2 F 02/21/19 15:43 Pulse 86 02/21/19 15:43 Resp 18 02/21/19 15:43 BP 110/73 02/21/19 15:43 Pulse Ox 99 02/21/19 15:43 - Medical History PMH: Hypercholesterolemia, Kidney Stones, Chronic Kidney Disease Family History: States: Unknown Family Hx - Social History Hx Alcohol Use: No Hx Substance Use: No - Immunization History Hx Tetanus Toxoid Vaccination: No Hx Influenza Vaccination: No Hx Pneumococcal Vaccination: No Review Of Systems Except As Marked, All Systems Reviewed And Found Negative. Constitutional: Negative for: Fever, Chills Cardiovascular: Negative for: Chest Pain Respiratory: Negative for: Shortness of Breath Gastrointestinal: Positive for: Abdominal Pain (suprapubic). Negative for: Nausea, Vomiting, Diarrhea Genitourinary: Positive for: Dysuria. Negative for: Hematuria, Vaginal Discharge, Vaginal Bleeding Musculoskeletal: Negative for: Back Pain Neurological: Negative for: Weakness, Dizziness Physical Exam - Physical Exam Appears: Well, Non-toxic, No Acute Distress Skin: Warm, Dry Head: Atraumatic, Normacephalic Eye(s): bilateral: Normal Inspection, PERRL, EOMI Oral Mucosa: Moist Neck: Normal ROM Chest: Symmetrical Cardiovascular: Rhythm Regular, No Murmur Respiratory: Normal Breath Sounds, No Accessory Muscle Use Gastrointestinal/Abdominal: Soft, Tenderness (Suprapubic tenderness, mostly left-sided), No Guarding, No Rebound Back: No CVA Tenderness, No Vertebral Tenderness Extremity: Bilateral: Atraumatic, Normal Color And Temperature Neurological/Psych: Oriented x3, Normal Speech ED Course And Treatment - Laboratory Results Result Diagrams: 02/21/19 17:47 02/21/19 17:47 Lab Results: Total Bilirubin 0.3 mg/dL (0.2-1.3) 02/21/19 17:47 AST 26 U/L (14-36) 02/21/19 17:47 ALT 13 U/L (9-52) 02/21/19 17:47 Alkaline Phosphatase 97 U/L (38-126) 02/21/19 17:47 Total Protein 7.1 g/dL (6.3-8.3) 02/21/19 17:47 Albumin 4.2 g/dL (3.5-5.0) 02/21/19 17:47 Globulin 2.8 gm/dL (2.2-3.9) 02/21/19 17:47 Albumin/Globulin Ratio 1.5 (1.0-2.1) 02/21/19 17:47 Urine Color Yellow (YELLOW) 02/21/19 16:49 Urine Clarity Hazy (Clear) 02/21/19 16:49 Urine pH 8.0 (5.0-8.0) 02/21/19 16:49 Ur Specific [place] 1.014 (1.003-1.030) 02/21/19 16:49 Urine Protein Negative mg/dL (NEGATIVE) 02/21/19 16:49 Urine Glucose (UA) Normal mg/dL (Normal) 02/21/19 16:49 Urine Ketones Negative mg/dL (NEGATIVE) 02/21/19 16:49 Urine Blood Negative (NEGATIVE) 02/21/19 16:49 Urine Nitrate Negative (NEGATIVE) 02/21/19 16:49 Urine Bilirubin Negative (NEGATIVE) 02/21/19 16:49 Urine Urobilinogen Normal mg/dL (0.2-1.0) 02/21/19 16:49 Ur Leukocyte Esterase Neg Siddharth/uL (Negative) 02/21/19 16:49 Urine WBC (Auto) 1 /hpf (0-5) 02/21/19 16:49 Urine RBC (Auto) < 1 /hpf (0-3) 02/21/19 16:49 Ur Squamous Epith Cells < 1 /hpf (0-5) 02/21/19 16:49 Amorphous Sediment Rare /ul (<OCC) H 02/21/19 16:49 Urine Bacteria Rare (<OCC) 02/21/19 16:49 Urine HCG, Qual Negative (NEGATIVE) 02/21/19 16:08 Urine HCG, Qual Negative (NEGATIVE) 02/21/19 16:08 O2 Sat by Pulse Oximetry: 99 (RA) Pulse Ox Interpretation: Normal - CT Scan/US Pelvic US Other Rad Studies (CT/US): Read By Radiologist, Radiology Report Reviewed CT/US Interpretation: Accession No. : [id number]. Patient Name / ID : ASIA LOPEZ / [id number]. Exam Date : 02/21/2019 17:47:35 ( Approved ). Study Comment : Sex / Age : F / 28Y. Creator : Cecilia Gonzales MD. Dictator : Cecilia Gonzales MD. Freight Car Builder : Chief Librarian Branch : Cecilia Gonzales MD. Approver2 : Report Date : 02/21/2019 18:30:28. My Comment : . Date of service: 02/21/2019. HISTORY: suprapubic and left pelvic pain. COMPARISON: Pelvic ultrasound performed 04/10/18. TECHNIQUE: Real-time transabdominal pelvic ultrasound was performed. In addition a transvaginal pelvic ultrasound was necessary to better depict pelvic anatomy. FINDINGS: UTERUS: Measures 8.3 x 4.2 x 5.5 cm. Anteverted. ENDOMETRIUM: Measures 1.2 cm in diameter. CERVIX: No cervical abnormality identified. RIGHT OVARY: Measures 2.7 x 1.8 x 2.4 cm. Blood flow is demonstrated. LEFT OVARY: Measures 3.3 x 2.3 x 2.0 cm. Blood flow is demonstrated. FREE FLUID: Small free fluid within the cul-de-sac. OTHER FINDINGS: None. IMPRESSION: Small pelvic free fluid, cul-de-sac. This examination is predicated on a negative test. Correlate clinically. Progress Note: Urine sent to the lab. NS IV fluids infusing. UA is clear. Will obtained pelvic US and blood work. Ultrasound resulted, showing small free fluid within the cul-de-sac. Disposition - Disposition Referrals: [facility] [Outside] Disposition: HOME/ ROUTINE Disposition Time: 20:03 Condition: STABLE Additional Instructions: Follow up with CVICU RN within 2-3 days. Return to ED if feel worse. Prescriptions: Nitrofurantoin Macrocrystals [Macrobid] 1 cap PO BID #14 cap Instructions: Dysuria, Adult (DC) Forms: [employer] (Indonesian) - Clinical Impression Clinical Impression: Dysuria - PA / BRIDGE INSPECTOR / Resident Statement MD/DO has reviewed & agrees with the documentation as recorded. - Scribe Statement The provider has reviewed the documentation as recorded by the Eileenibparvin Berumen All medical record entries made by the Eileenibparvin were at my direction and personally dictated by me. I have reviewed the chart and agree that the record accurately reflects my personal performance of the history, physical exam, medical decision making, and the department course for this patient. I have also personally directed, reviewed, and agree with the discharge instructions and disposition.
[2019-02-21 18:18] VITALS: RESP 16
--- NOTE | 2019-02-21 18:34 | US ---
Date of service: 02/21/2019 HISTORY: suprapubic and left pelvic pain COMPARISON: Pelvic ultrasound performed 04/10/18 TECHNIQUE: Real-time transabdominal pelvic ultrasound was performed. In addition a transvaginal pelvic ultrasound was necessary to better depict pelvic anatomy. FINDINGS: UTERUS: Measures 8.3 x 4.2 x 5.5 cm. Anteverted. ENDOMETRIUM: Measures 1.2 cm in diameter. CERVIX: No cervical abnormality identified. RIGHT OVARY: Measures 2.7 x 1.8 x 2.4 cm. Blood flow is demonstrated. LEFT OVARY: Measures 3.3 x 2.3 x 2.0 cm. Blood flow is demonstrated. FREE FLUID: Small free fluid within the cul-de-sac. OTHER FINDINGS: None. IMPRESSION: Small pelvic free fluid, cul-de-sac. This examination is predicated on a negative test. Correlate clinically.
[2019-02-21 20:22] VITALS: BP 111/74; PULSE 74; TEMP 97.8
[2019-02-21 21:55] VITALS: O2SAT 99
== END 2019-02-21 20:30 | disposition home or self-care (01) ==
LOC: C.ER 15:21
DX: R30.0 Dysuria (principal)
CPT/HCPCS: 76830; 76856; 80053; 81001; 84703; 85025; 87086; 96360; 99285; J7030